=== PATIENT | male | born 1945 | race Native Hawaiian/Other Pacific Islander ===

== ENCOUNTER 2017-04-16 18:26 | Inpatient (IN) | payer MEDICARE ==
[~2017-04-16] VITALS: Ht 167.6 cm; Wt 75.1 kg
[~2017-04-16 18:26] MED LIST: ACCUMIS25; ACCUTES19; ASPI1TAB69 PO; ATOR40TA16 PO; GLIP5TAB8 PO; Lancets; MEDR4PAK PO; MELO-1 PO; METF1000 PO; ONETKIT; PROS5TAB PO; ROBA500T PO; TAMS0.4C4 PO; Test Strips; VIAG100T PO; [UNRECOGNIZED DRUG - SUPPLY]
[2017-04-16 18:29] VITALS: BP 129/58; PULSE 81; RESP 20; TEMP 98.8; O2SAT 94
--- NOTE | 2017-04-16 18:47 | PD ---
Physical Exam Date Seen by Provider: Apr 16, 2017 Time Seen by Provider: 18:46 Narrative 71 yo male here for low hemoglobin. Blood work done by PCP. Send here for eval. No chest pain or SOB. Denies any bleeding at this time. Vitals are stable in triage. Awaiting bed placement. Data Data Last Documented VS Vital Signs Date Time Temp Pulse Resp B/P (MAP) Pulse Ox O2 Delivery O2 Flow Rate FiO2 04/16/17 18:29 98.8 81 20 129/58 (81) 94 Room Air [facility] Medical Record Reviewed: Yes Supervised Visit with DRE: Ralph Watters Apr 16, 2017 18:47
[2017-04-16 19:25] VITALS: BP 129/57; PULSE 79; RESP 20; O2SAT 99
--- NOTE | 2017-04-16 19:36 | PD ---
HPI Chief Complaint: Abnormal Results Time Seen by Provider: 19:25 Travel History International Travel<30 days: No Contact w/Intl Traveler<30days: No Traveled to known affect area: No History of Present Illness HPI This is a 71-year-old male who presents for evaluation of abnormal lab work. He reports that last week he had outpatient lab tests performed and his primary care physician, Dr. Alvarez, called him today and told him his hemoglobin was in the low 6 range and told him to come to the emergency room. He does report over the past few weeks he has had increased weakness and dyspnea. He does also endorse black-looking stools on review of systems. He denies chest pain, nausea or vomiting, abdominal pain. He is on meloxicam and baby aspirin per chart review. He also has a history of colon cancer in remission. PFSH Past Medical History Arthritis: No Cancer: Yes (colon) Cardiovascular Problems: Yes Chemotherapy: No Cerebrovascular Accident: Yes Diabetes: Yes Patient Takes Glucophage: Yes Diminished Hearing: No Endocrine: No Gastrointestinal Disorders: Yes ( COLON CA) Genitourinary: No Hepatitis: No Hiatal Hernia: No Immune Disorder: No Musculoskeletal: Yes (BACK HNP) Neurologic: Yes (TIA HX) Psychiatric: No Reproductive: No Respiratory: No Migraines: No Radiation Therapy: No Seizures: No Thyroid Disease: No Past Surgical History Abdominal Surgery: Yes (ING HERNIA REP. LEFT) AICD: No Genitourinary Surgery: No Joint Replacement: No Pacemaker: No Other Surgery: Yes Social History Alcohol Use: No Tobacco Use: No Substance Use: No Allergies-Medications (Allergen,Severity, Reaction): Coded Allergies: No Known Allergies (Unverified , 04/12/17) Reported Meds & Prescriptions Reported Meds & Active Scripts Active Medrol Dosepak (Methylprednisolone) 4 Mg Dspk 4 Mg PO DIRECTED Per Pharmacist direction Glipizide 5 Mg Tab 5 Mg PO BIDAC Take 30 minutes before a meal Metformin (Metformin HCl) 1,000 Mg Tab 1,000 Mg PO BID With a meal Tamsulosin (Tamsulosin HCl) 0.4 Mg Cap 0.4 Mg PO HS Meloxicam 15 Mg Tab 15 Mg PO DAILY [Lancets] 1 Units .XX BID Onetouch Ultra Delica Lancets Atorvastatin (Atorvastatin Calcium) 40 Mg Tab 40 Mg PO HS Proscar (Finasteride) 5 Mg Tab 5 Mg PO DAILY Do not crush. [Test Strips] 1 Units .XX BID Onetouch Ultra Blue Test STrips [Accucheck Michelle] 1 U BID Glucometer - check blood sugars 2x daily Reported Aspirin 81 Mg Chew 81 Mg CHEW DAILY Accu-Chek Fastclix Lancet 1 Mis Mis 1 Ea .ROUTE DIRECTED Accu-Chek Strips Michelle Plus (Blood Glucose Test Strips) 1 Nano Nano 1 Strips .ROUTE BID Viagra (Sildenafil Citrate) 100 Mg Tab 100 Mg PO DAILY PRN Onetouch Ultra Mini W/Device (Device) 1 Kit Kit 1 Kit .ROUTE DIRECTED Review of Systems Except as stated in HPI: all other systems reviewed are Neg Physical Exam Narrative GENERAL: This is a well-developed well-nourished male who is in no acute distress. SKIN: Warm and dry. HEAD: Atraumatic. Normocephalic. EYES: Pupils equal and round. No scleral icterus. No injection or drainage. ENT: No nasal bleeding or discharge. Mucous membranes pink and moist. NECK: Trachea midline. No JVD. CARDIOVASCULAR: Regular rate and rhythm. Systolic murmur noted. RESPIRATORY: No accessory muscle use. Clear to auscultation. Breath sounds equal bilaterally. GASTROINTESTINAL: Abdomen soft, non-tender, nondistended. Hepatic and splenic margins not palpable. Rectal examination reveals brown stool which is heme positive. MUSCULOSKELETAL: No obvious deformities. No clubbing. No cyanosis. No edema. NEUROLOGICAL: Awake and alert. No obvious cranial nerve deficits. Motor grossly within normal limits. Normal speech. PSYCHIATRIC: Appropriate mood and affect; insight and judgment normal. Data Data Last Documented VS Vital Signs Date Time Temp Pulse Resp B/P (MAP) Pulse Ox O2 Delivery O2 Flow Rate FiO2 04/16/17 20:13 99 Room Air 04/16/17 19:25 79 20 04/16/17 18:29 98.8 Orders Orders Type And Screen (04/16/17 19:33) Complete Blood Count With Diff (04/16/17 19:33) Comprehensive Metabolic Panel (04/16/17 19:33) Act Partial Throm Time (Ptt) (04/16/17 19:33) Prothrombin Time / Inr (Pt) (04/16/17 19:33) Iv Access Insert/Monitor (04/16/17 19:33) Ecg Monitoring (04/16/17 19:33) Oximetry (04/16/17 19:33) Red Blood Cells (Rbc) (04/16/17 20:39) Blood Product Administration (04/16/17 20:39) Sodium Chlor 0.9% 250 Ml Inj (Ns 250 Ml (04/16/17 20:45) Pantoprazole Inj (Protonix Inj) (04/16/17 20:45) Admit Order (Ed Use Only) (04/16/17 21:18) Admit To Inpatient (04/16/17 ) Vital Signs (Adult) OMAIRA.Q4H (04/16/17 21:20) Activity Bed Rest (04/16/17 21:20) Low Altitude Air Defense Officer / Telemetry OMAIRA.Q8H (04/16/17 21:20) Diet Npo (04/17/17 Breakfast) Resp Oxygen Darrius C Titrat 1-4 L (04/16/17 ) Sodium Chloride 0.9% Flush (Ns Flush) (04/16/17 21:30) Sodium Chloride 0.9% Flush (Ns Flush) (04/17/17 09:00) Npo After Midnight W/ Po Meds (04/17/17 Breakfast) Inpatient Certification (04/16/17 ) Labs Laboratory Tests Test 04/16/17 19:45 White Blood Count 6.4 TH/MM3 Red Blood Count 3.81 MIL/MM3 Hemoglobin 7.0 GM/DL Hematocrit 23.5 % Mean Corpuscular Volume 61.8 FL Mean Corpuscular Hemoglobin 18.4 PG Mean Corpuscular Hemoglobin Concent 29.8 % Red Cell Distribution Width 19.4 % Platelet Count 426 TH/MM3 Mean Platelet Volume 8.6 FL Neutrophils (%) (Auto) 55.1 % Lymphocytes (%) (Auto) 32.0 % Monocytes (%) (Auto) 10.7 % Eosinophils (%) (Auto) 0.9 % Basophils (%) (Auto) 1.3 % Neutrophils # (Auto) 3.5 TH/MM3 Lymphocytes # (Auto) 2.0 TH/MM3 Monocytes # (Auto) 0.7 TH/MM3 Eosinophils # (Auto) 0.1 TH/MM3 Basophils # (Auto) 0.1 TH/MM3 CBC Comment DIFF FINAL Differential Comment Prothrombin Time 10.6 SEC Prothromb Time International Ratio 1.0 RATIO Activated Partial Thromboplast Time 24.5 SEC Blood Urea Nitrogen 18 MG/DL Creatinine 1.12 MG/DL Random Glucose 114 MG/DL Total Protein 6.9 GM/DL Albumin 3.9 GM/DL Calcium Level 9.3 MG/DL Alkaline Phosphatase 55 U/L Aspartate Amino Transf (AST/SGOT) 20 U/L Alanine Aminotransferase (ALT/SGPT) 36 U/L Total Bilirubin 0.4 MG/DL Sodium Level 137 MEQ/L Potassium Level 3.8 MEQ/L Chloride Level 103 MEQ/L Carbon Dioxide Level 25.0 MEQ/L Anion Gap 9 MEQ/L Estimat Glomerular Filtration Rate 65 ML/MIN MDM Medical Decision Making Medical Screen Exam Complete: Yes Emergency Medical Condition: Yes Medical Record Reviewed: Yes Differential Diagnosis Anemia, GI bleed, lab error Narrative Course CBC, coags, CMP, type and screen have been sent. The patient's hemoglobin is 7, he is symptomatic, therefore 2 units packed red blood cells have been ordered. 40 mg IV Protonix have been ordered. He is Hemoccult positive with brown stool. The patient will be admitted for further evaluation and treatment of symptomatic anemia, GI bleed. Hemodynamically stable. Diagnosis Primary Impression: Symptomatic anemia Additional Impression: GI bleed Qualified Codes: K92.2 - Gastrointestinal hemorrhage, unspecified Admitting Information Admitting Physician Requests: Admit Sina Murphy Apr 16, 2017 19:36
[2017-04-16] MEDS ORDERED: ASPI81CH CHEW (19:37)
[2017-04-16 20:13] VITALS: O2SAT 99
[2017-04-16 20:15] LABS: AUTOMATED NEUTROPHIL # 3.5 TH/MM3 (1.8-7.7); BASOPHIL # 0.1 TH/MM3 (0-0.2); BASOPHIL % 1.3 % (0.0-2.0); EOSINOPHIL # 0.1 TH/MM3 (0-0.4); EOSINOPHIL % 0.9 % (0.0-4.0); HEMATOCRIT 23.5 % (39.0-51.0); HEMO FLAGS DIFF FINAL; MEAN CELL VOLUME 61.8 FL (80.0-100.0); MEAN CORPUSCULAR HEMOGLOBIN 18.4 PG (27.0-34.0); MONO % 10.7 % (0.0-8.0); NEUT % 55.1 % (16.0-70.0); PLATELET COUNT 426 TH/MM3 (150-450); RED BLOOD COUNT 3.81 MIL/MM3 (4.50-5.90); RED CELL DISTRIBUTION WIDTH 19.4 % (11.6-17.2); WHITE BLOOD COUNT 6.4 TH/MM3 (4.0-11.0)
[2017-04-16 20:20] LABS: APTT (PATIENT) 24.5 SEC (24.3-30.1); PROTHROMBIN TIME - PATIENT 10.6 SEC (9.8-11.6)
[2017-04-16 20:28] LABS: MEAN CORPUSCULAR HGB CONC 29.8 % (32.0-36.0)
[2017-04-16 20:38] LABS: ANION GAP 9 MEQ/L (5-15); AST (GOT) 20 U/L (15-37); BLOOD UREA NITROGEN 18 MG/DL (7-18); CHLORIDE 103 MEQ/L (98-107); GLOMERULAR FILTRATION RATE 65 ML/MIN (>89); POTASSIUM 3.8 MEQ/L (3.5-5.1); SODIUM (NA) 137 MEQ/L (136-145)
[2017-04-16 20:39] LABS: ALT (GPT) 36 U/L (12-78)
[2017-04-16 20:41] LABS: ALKALINE PHOSPHATASE 55 U/L (45-117); TOTAL BILIRUBIN ADULT 0.4 MG/DL (0.2-1.0)
[2017-04-16] MEDS ORDERED: PANTOPRAZOLE SODIUM 40 MG VIAL IV PUSH ONE (20:45)
[2017-04-16] MEDS ORDERED: SODIUM CHLOR 0.9% 250 ML INJ 250 ML IV ONE (20:45)
--- NOTE | 2017-04-16 21:20 | HHI.HP ---
HPI Service Family Medicine Primary Care Physician Filiberto Alvarez MD Admission Diagnosis symptomatic anemia, GI bleed Diagnoses: International Travel<30 Days: No Contact w/Intl Traveler<30days: No Known Affected Area: No History of Present Illness Patient is a 71-year-old male with a past medical history of diabetes, hyperlipidemia, colon cancer status post left hemicolectomy, hypertension, BPH, and left knee pain that presented to the [place] ED after being sent here by Dr. Banegas who saw him in the [facility] clinic on April 12. At that time, patient complained of shortness of breath with exertion, fatigue and dizziness. Patient also reported having pressure-like sensation in his chest of one week duration. A CBC was ordered at that clinic visit which showed a hemoglobin of 6.2 and hematocrit of 22. Patient was called and asked to present to the ED for blood transfusion. Patient would need to be evaluated due to his history of colon cancer for which he had a left hemicolectomy on November 11, 2013. Review of Systems Constitutional: COMPLAINS OF: Fatigue, DENIES: Fever, Chills Eyes: DENIES: Blurred vision, Vision loss Ears, nose, mouth, throat: DENIES: Nasal discharge, Running Nose Respiratory: COMPLAINS OF: Shortness of breath Cardiovascular: COMPLAINS OF: Chest pain (pressure) Gastrointestinal: COMPLAINS OF: Black stools, DENIES: Abdominal pain Genitourinary: DENIES: Urinary frequency, Dysuria Musculoskeletal: COMPLAINS OF: Muscle aches (lower leg cramping ), DENIES: Joint pain Integumentary: DENIES: Pruritus, Rash Neurologic: DENIES: Headache Past Family Social History Past Medical History Diabetes Mellitus type II BPH Low back pain with h/o herniated disk Colon Cancer status post hemicolectomy 2013 Past Surgical History Left inguinal hernia repair 1984 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 [Test Strips] 1 Units .XX BID Onetouch Ultra Blue Test STrips [Accucheck Michelle] 1 U BID Glucometer - check blood sugars 2x daily Reported Aspirin 81 Mg Chew 81 Mg CHEW DAILY Accu-Chek Fastclix Lancet 1 Mis Mis 1 Ea .ROUTE DIRECTED Accu-Chek Strips Michelle Plus (Blood Glucose Test Strips) 1 Nano Nano 1 Strips .ROUTE BID Viagra (Sildenafil Citrate) 100 Mg Tab 100 Mg PO DAILY PRN Onetouch Ultra Mini W/Device (Device) 1 Kit Kit 1 Kit .ROUTE DIRECTED Allergies: Coded Allergies: No Known Allergies (Unverified , 04/12/17) Family History Father: age 85 - heart failure Mother: age 70 - heart failure Siblings: Brother age 80 heart failure, sister age 60 ovarian cancer Brother age 77, diabetic Sister age 68 - healthy Children: Son/daughter - both healthy Social History Marrital Status: Living Situation: Alone in apartment Education: college graduate 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 SKIN: No rashes, ecchymoses or lesions. Cool and dry, pale appearing HEAD: Atraumatic. Normocephalic. No temporal or scalp tenderness. EYES: Pupils equal round and reactive. Extraocular motions intact. No scleral icterus. No injection or drainage. ENT: Nose without bleeding, purulent drainage or septal hematoma. Throat without erythema, tonsillar hypertrophy or exudate. Uvula midline. Airway patent. NECK: Trachea midline. No JVD or lymphadenopathy. Supple, nontender, no meningeal signs. CARDIOVASCULAR: Regular rate and rhythm. Grade 3/6 holosystolic ejection murmur that radiates to the carotids RESPIRATORY: Clear to auscultation. Breath sounds equal bilaterally. No wheezes , rales, or rhonchi. GASTROINTESTINAL: Abdomen soft, non-tender, nondistended. No hepato-splenomegaly , or palpable masses. No guarding. MUSCULOSKELETAL: Extremities without clubbing, cyanosis, or edema. No joint tenderness, effusion, or edema noted. No calf tenderness. NEUROLOGICAL: Awake and alert, very pleasant. Cranial nerves II through XII intact. Motor and sensory grossly within normal limits. Five out of 5 muscle strength in all muscle groups. Normal speech. Laboratory Laboratory Tests Test 04/16/17 19:45 White Blood Count 6.4 Red Blood Count 3.81 Hemoglobin 7.0 Hematocrit 23.5 Mean Corpuscular Volume 61.8 Mean Corpuscular Hemoglobin 18.4 Mean Corpuscular Hemoglobin Concent 29.8 Red Cell Distribution Width 19.4 Platelet Count 426 Mean Platelet Volume 8.6 Neutrophils (%) (Auto) 55.1 Lymphocytes (%) (Auto) 32.0 Monocytes (%) (Auto) 10.7 Eosinophils (%) (Auto) 0.9 Basophils (%) (Auto) 1.3 Neutrophils # (Auto) 3.5 Lymphocytes # (Auto) 2.0 Monocytes # (Auto) 0.7 Eosinophils # (Auto) 0.1 Basophils # (Auto) 0.1 CBC Comment DIFF FINAL Differential Comment Prothrombin Time 10.6 Prothromb Time International Ratio 1.0 Activated Partial Thromboplast Time 24.5 Blood Urea Nitrogen 18 Creatinine 1.12 Random Glucose 114 Total Protein 6.9 Albumin 3.9 Calcium Level 9.3 Alkaline Phosphatase 55 Aspartate Amino Transf (AST/SGOT) 20 Alanine Aminotransferase (ALT/SGPT) 36 Total Bilirubin 0.4 Sodium Level 137 Potassium Level 3.8 Chloride Level 103 Carbon Dioxide Level 25.0 Anion Gap 9 Estimat Glomerular Filtration Rate 65 Result Diagram: 04/16/17194404/16/171944 Caprini VTE Risk Assessment Caprini VTE Risk Assessment: No/Low Risk (score <= 1) VTE Pharm Contraindication: Active bleeding Caprini Risk Assessment Model Point Value = 1 Point Value = 2 Point Value = 3 Point Value = 5 Age 41-60 Minor surgery BMI > 25 kg/m2 Swollen legs Varicose veins or History of unexplained or recurrent spontaneous Oral contraceptives or hormone replacement Sepsis (< 1 month) Serious lung disease, including pneumonia (< 1 month) Abnormal pulmonary function Acute myocardial infarction Congestive heart failure (< 1 month) History of inflammatory bowel disease Medical patient at bed rest Age 61-74 Arthroscopic surgery Major open surgery (> 45 min) Laparoscopic surgery (> 45 min) Malignancy Confined to bed (> 72 hours) Immobilizing plaster cast Central venous access Age >= 75 History of VTE Family history of VTE Factor V Leiden Prothrombin [id number] Lupus anticoagulant Anticardiolipin antibodies Elevated serum homocysteine Heparin-induced thrombocytopenia Other congenital or acquired thrombophilia Stroke (< 1 month) Elective arthroplasty Hip, pelvis, or leg fracture Acute spinal cord injury (< 1 month) Prophylaxis Regimen Total Risk Factor Score Risk Level Prophylaxis Regimen 0-1 Low Early ambulation 2 Moderate Order ONE of the following: *Sequential Compression Device (SCD) *Heparin 5000 units SQ BID 3-4 Higher Order ONE of the following medications: *Heparin 5000 units SQ TID *Enoxaparin/Lovenox 40 mg SQ daily (WT < 150 kg, CrCl > 30 mL/min) *Enoxaparin/Lovenox 30 mg SQ daily (WT < 150 kg, CrCl > 10-29 mL/min) *Enoxaparin/Lovenox 30 mg SQ BID (WT < 150 kg, CrCl > 30 mL/min) AND/OR *Sequential Compression Device (SCD) 5 or more Highest Order ONE of the following medications: *Heparin 5000 units SQ TID (Preferred with Epidurals) *Enoxaparin/Lovenox 40 mg SQ daily (WT < 150 kg, CrCl > 30 mL/min) *Enoxaparin/Lovenox 30 mg SQ daily (WT < 150 kg, CrCl > 10-29 mL/min) *Enoxaparin/Lovenox 30 mg SQ BID (WT < 150 kg, CrCl > 30 mL/min) AND *Sequential Compression Device (SCD) Assessment and Plan Assessment and Plan 71 y/o M with PMH of diabetes, hypertension, and colon cancer status post left hemicolectomy in 2013 presents with symptomatic anemia, Hemoccult positive. Patient will be admitted for blood transfusion and evaluation by gastroenterology due to concern for recurrence of colon cancer. Code Status Full code Discussed Condition With Seen and discussed with Dr. Coelho, PGY-1. Will discuss with Dr. Cramer. Problem List: (1) Symptomatic anemia ICD Codes: D64.9 - Anemia, unspecified Status: Acute Plan: -CBC in office 6.2, 7.0 in the ED -Pt reports intermittent pressure-like chest pain, fatigue, and shortness of breath of at least 2 weeks duration -Has not been eating well of late -Will transfuse 2 units PRBC -Repeat CBC in the am after transfusion (2) GI bleed ICD Codes: K92.2 - Gastrointestinal hemorrhage, unspecified Status: Chronic Plan: -Hemoccult positive in the ED in the setting of colon cancer s/p hemicolectomy in 2013 -Suspect chronic GI bleed, will have to rule out colon cancer recurrence -GI consulted to evaluate for colonoscopy/EGD -NPO at midnight for possible procedure in the morning -Holding Aspirin and Meloxicam (3) Diabetes mellitus type 2 in nonobese ICD Codes: E11.9 - Type 2 diabetes mellitus without complications Status: Chronic Plan: -Holding home metformin and glipizide -Low dose sliding scale insulin with accuchecks (4) Valvular heart disease ICD Codes: I38 - Endocarditis, valve unspecified Status: Chronic Plan: -ECHO from 11/2016 performed as outpatient shows EF of 62% with moderate aortic stenosis, mild MR, mild-moderate TR, and mild pulmonary hypertension -Pt had recent visit with his office machines sales representative Dr. Moran on 04/15/17 who scheduled him for a heart cath next week -Holding aspirin due to GI bleed (5) Hypertension ICD Codes: I10 - Hypertension Status: Acute Plan: -Currently normotensive -Not on any antihypertensives at home -Vasotec prn for SBP>170 or DBP > 100 or HR >65 (6) Hyperlipidemia ICD Codes: E78.5 - Hyperlipidemia Status: Acute Plan: Holding atorvastatin due to complaints of leg cramps (7) BPH (benign prostatic hyperplasia) ICD Codes: N40.0 - Benign prostatic hyperplasia without lower urinary tract symptoms Plan: -Continue home Tamsulosin 0.4 mg PO HS and Finasteride 5mg PO daily (8) FEN/DVT PPX/GI PPX/Nursing Orders Plan: Fluids: currently receiving 2 units PRBC, primary team may choose to start fluids in the am Electrolytes: Will monitor and replace as needed Nutrition: NPO at midnight for procedure, otherwise heart healthy diet DVT Prophylaxis: Bilateral SCDs, Holding pharmacological prophylaxis due to GI bleed GI Prophylaxis: Protonix 40mg IV daily Constipation prophylaxis: Pericolace 1 tab PO BID PRN PRN Medications Tylenol 325 mg by mouth every 4 hours when necessary pain 1-10 or temperature greater than 100.4F Zofran 4 mg IV push every 6 hours when necessary nausea vomiting Vasotec 1.25 mg IV PRN SBP greater than 170 or DBP greater than 100 -Vitals Q4h -Monitor I's and O's -Fall precautions -security monitor with telemetry with continuous vital signs -Activity bed rest -Case management consult to assist with discharge disposition Disposition: Possibly in the next 2-3 days pending GI consult Physician Certification 2 Midnight Certification Type: Admission for Inpatient Services Order for Inpatient Services The services are ordered in accordance with Medicare regulations or non- Medicare payer requirements, as applicable. In the case of services not specified as inpatient-only, they are appropriately provided as inpatient services in accordance with the 2-midnight benchmark. Estimated LOS (days): 2 days is the estimated time the patient will need to remain in the hospital, assuming treatment plan goals are met and no additional complications. Post-Hospital Plan: Home Problem Qualifiers (1) GI bleed: Qualified Codes: K92.2 - Gastrointestinal hemorrhage, unspecified Lucie Banegas MD R2 Apr 16, 2017 21:19
[2017-04-16] MEDS ORDERED: SODIUM CHLORIDE 0.9% FLUSH 10 ML FLUSH IV FLUSH PRN (21:30)
[2017-04-16 21:56] VITALS: O2SAT 99
[2017-04-16 22:00] VITALS: PULSE 69
[2017-04-16 22:40] VITALS: BP 117/77; PULSE 71; RESP 18; TEMP 98.8; O2SAT 98
[2017-04-16] MEDS: TAMSULOSIN HCL 0.4 MG CAP PO SCH (22:46)
[2017-04-16] MEDS: FINASTERIDE 5 MG TAB PO SCH (22:46)
[2017-04-16] MEDS ORDERED: ONDANSETRON HCL 4 MG/2 ML VIAL IV PUSH PRN (23:15)
[2017-04-16] MEDS ORDERED: DEXTROSE 50% IN WATER 50 ML VIAL(D50) IV PUSH PRN (23:15)
[2017-04-16] MEDS ORDERED: ACETAMINOPHEN 325 MG TAB PO PRN (23:15)
[2017-04-16] MEDS ORDERED: ENALAPRILAT 1.25 MG/ML VIAL IV PUSH PRN (23:15)
[2017-04-16] MEDS ORDERED: GLUCAGON 1 MG/ML VIAL OTHER PRN (23:15)
[2017-04-16] MEDS ORDERED: FUROSEMIDE 20 MG/2 ML VIAL IV PUSH PRN (23:30)
[2017-04-16] MEDS ORDERED: diphenhydrAMINE HCL 25 MG CAP PO PRN (23:30)
[2017-04-16] MEDS ORDERED: DOCUSATE SODIUM 50 MG/SENNA 8.6 MG TAB PO PRN (23:45)
[2017-04-17] VITALS (10 sets, daily range): BP systolic 109–144; BP diastolic 54–72; PULSE 60–97; RESP 16–21; TEMP 97.6–98.8; O2SAT 96–100
[2017-04-17 06:29] LABS: MEAN CELL VOLUME 66.2 FL (80.0-100.0); MEAN CORPUSCULAR HEMOGLOBIN 20.6 PG (27.0-34.0); MEAN CORPUSCULAR HGB CONC 31.1 % (32.0-36.0); PLATELET COUNT 353 TH/MM3 (150-450); RED BLOOD COUNT 4.07 MIL/MM3 (4.50-5.90); RED CELL DISTRIBUTION WIDTH 22.5 % (11.6-17.2); REVIEW FLAG FINAL; WHITE BLOOD COUNT 5.7 TH/MM3 (4.0-11.0)
[2017-04-17 07:12] LABS: BICARBONATE 25.5 MEQ/L (21.0-32.0); POTASSIUM 3.9 MEQ/L (3.5-5.1)
[2017-04-17] MEDS: INSULIN ASPART SUPPLEMENTAL SCALE SQ SCH ×4 (08:00→20:35)
[2017-04-17] MEDS: PANTOPRAZOLE SODIUM 40 MG VIAL IV PUSH SCH (08:37)
[2017-04-17] MEDS: SODIUM CHLORIDE 0.9% FLUSH 10 ML FLUSH IV FLUSH SCH ×2 (09:00→20:35)
[2017-04-17] MEDS ORDERED: FINASTERIDE 5 MG TAB PO SCH (09:00)
--- NOTE | 2017-04-17 09:42 | HHI.HP ---
[facility] Service Family Medicine Primary Care Physician Filiberto Alvarez MD Admission Diagnosis symptomatic anemia, GI bleed Diagnoses: (1) Symptomatic anemia Diagnosis: Principal (2) GI bleed Diagnosis: Principal (3) Diabetes mellitus type 2 in nonobese Diagnosis: Principal (4) Valvular heart disease Diagnosis: Principal (5) Hypertension Diagnosis: Principal (6) Hyperlipidemia Diagnosis: Principal (7) BPH (benign prostatic hyperplasia) Diagnosis: Principal (8) FEN/DVT PPX/GI PPX/Nursing Orders Diagnosis: Principal International Travel<30 Days: No Contact w/Intl Traveler<30days: No Known Affected Area: No History of Present Illness Mr Stacy is a 71-year-old male with a past medical history of diabetes, hyperlipidemia, colon cancer status post left hemicolectomy, hypertension, BPH, and left knee pain that presented to the [place] ED after being sent here by Dr. Banegas who saw him in the [facility] clinic on April 12. At that time, patient complained of shortness of breath with exertion, fatigue and dizziness. Patient also reported having pressure-like sensation in his chest of one week duration. A CBC was ordered at that clinic visit which showed a hemoglobin of 6.2 and hematocrit of 22. Patient was called and asked to present to the ED for blood transfusion. Patient would need to be evaluated due to his history of colon cancer for which he had a left hemicolectomy on November 11, 2013. He denies any history of blood seen in his stools or dark tarry stools. he reported all his sxs of SOB, fatigue, etc started about a week prior to admission. Review of Systems Other Constitutional: COMPLAINS OF: Fatigue, DENIES: Fever, Chills Eyes: DENIES: Blurred vision, Vision loss Ears, nose, mouth, throat: DENIES: Nasal discharge, Running Nose Respiratory: COMPLAINS OF: Shortness of breath Cardiovascular: COMPLAINS OF: Chest pain (pressure) Gastrointestinal: COMPLAINS OF: Black stools, DENIES: Abdominal pain Genitourinary: DENIES: Urinary frequency, Dysuria Musculoskeletal: COMPLAINS OF: Muscle aches (lower leg cramping ), DENIES: Joint pain Integumentary: DENIES: Pruritus, Rash Neurologic: DENIES: Headache Past Family Social History Past Medical History Diabetes Mellitus type II BPH Low back pain with h/o herniated disk Colon Cancer status post hemicolectomy 2013 moderate aortic stenosis Past Surgical History Left inguinal hernia repair 1984 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 Allergies: Coded Allergies: No Known Allergies (Unverified , 04/12/17) Family History Father: age 85 - heart failure Mother: age 70 - heart failure Siblings: Brother age 80 heart failure, sister age 60 ovarian cancer Brother age 77, diabetic Sister age 68 - healthy Children: Son/daughter - both healthy Social History Marrital Status: Living Situation: Alone in apartment Education: college graduate 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 Tobacco: No - no h/o smoking Alcohol: none Illicit drug use: none Physical Exam Vital Signs Vital Signs Date Time Temp Pulse Resp B/P (MAP) Pulse Ox O2 Delivery O2 Flow Rate FiO2 04/17/17 08:00 97.9 74 18 131/63 (85) 99 04/17/17 05:18 98.2 62 16 119/59 97 04/17/17 04:00 98.1 61 19 110/54 (72) 96 04/17/17 02:07 98.0 70 18 109/55 97 04/17/17 00:00 98.8 76 21 123/72 (89) 100 04/16/17 22:40 98.8 71 18 117/77 (90) 98 04/16/17 22:05 04/16/17 22:00 Room Air 04/16/17 22:00 69 04/16/17 21:56 99 04/16/17 20:13 99 Room Air 04/16/17 19:25 79 20 129/57 (81) 99 Room Air 04/16/17 18:29 98.8 81 20 129/58 (81) 94 Room Air Physical Exam GENERAL: This is a well-nourished, well-developed patient, in no apparent distress. SKIN: No rashes, ecchymoses or lesions. Cool and dry, pale appearing on admission HEAD: Atraumatic. Normocephalic. EYES: Pupils equal round and reactive. Extraocular motions intact. No scleral icterus. No injection or drainage. ENT: Nose without bleeding, purulent drainage or septal hematoma. Throat without erythema, tonsillar hypertrophy or exudate. Uvula midline. Airway patent. NECK: Trachea midline. No JVD or lymphadenopathy. Supple, nontender, no meningeal signs. CARDIOVASCULAR: Regular rate and rhythm. Grade 3/6 holosystolic soft ejection murmur that radiates to the carotids RESPIRATORY: Clear to auscultation. Breath sounds equal bilaterally. No wheezes , rales, or rhonchi. GASTROINTESTINAL: Abdomen soft, non-tender, nondistended. No hepato-splenomegaly , or palpable masses. No guarding. MUSCULOSKELETAL: Extremities without clubbing, cyanosis, or edema. No joint tenderness, effusion, or edema noted. No calf tenderness. NEUROLOGICAL: Awake and alert, very pleasant. Cranial nerves II through XII intact. Motor and sensory grossly within normal limits. Five out of 5 muscle strength in all muscle groups. Normal speech. Laboratory Laboratory Tests Test 04/16/17 19:45 04/17/17 06:01 White Blood Count 6.4 5.7 Red Blood Count 3.81 4.07 Hemoglobin 7.0 8.4 Hematocrit 23.5 27.0 Mean Corpuscular Volume 61.8 66.2 Mean Corpuscular Hemoglobin 18.4 20.6 Mean Corpuscular Hemoglobin Concent 29.8 31.1 Red Cell Distribution Width 19.4 22.5 Platelet Count 426 353 Mean Platelet Volume 8.6 7.7 Neutrophils (%) (Auto) 55.1 Lymphocytes (%) (Auto) 32.0 Monocytes (%) (Auto) 10.7 Eosinophils (%) (Auto) 0.9 Basophils (%) (Auto) 1.3 Neutrophils # (Auto) 3.5 Lymphocytes # (Auto) 2.0 Monocytes # (Auto) 0.7 Eosinophils # (Auto) 0.1 Basophils # (Auto) 0.1 CBC Comment DIFF FINAL Differential Comment Prothrombin Time 10.6 Prothromb Time International Ratio 1.0 Activated Partial Thromboplast Time 24.5 Blood Urea Nitrogen 18 19 Creatinine 1.12 0.94 Random Glucose 114 100 Total Protein 6.9 Albumin 3.9 Calcium Level 9.3 8.5 Alkaline Phosphatase 55 Aspartate Amino Transf (AST/SGOT) 20 Alanine Aminotransferase (ALT/SGPT) 36 Total Bilirubin 0.4 Sodium Level 137 139 Potassium Level 3.8 3.9 Chloride Level 103 107 Carbon Dioxide Level 25.0 25.5 Anion Gap 9 7 Estimat Glomerular Filtration Rate 65 80 Result Diagram: 10/11/17 0601 10/11/17 0601 Caprini VTE Risk Assessment Caprini VTE Risk Assessment: No/Low Risk (score <= 1) VTE Pharm Contraindication: Active bleeding Caprini Risk Assessment Model Point Value = 1 Point Value = 2 Point Value = 3 Point Value = 5 Age 41-60 Minor surgery BMI > 25 kg/m2 Swollen legs Varicose veins or History of unexplained or recurrent spontaneous Oral contraceptives or hormone replacement Sepsis (< 1 month) Serious lung disease, including pneumonia (< 1 month) Abnormal pulmonary function Acute myocardial infarction Congestive heart failure (< 1 month) History of inflammatory bowel disease Medical patient at bed rest Age 61-74 Arthroscopic surgery Major open surgery (> 45 min) Laparoscopic surgery (> 45 min) Malignancy Confined to bed (> 72 hours) Immobilizing plaster cast Central venous access Age >= 75 History of VTE Family history of VTE Factor V Leiden Prothrombin [id number] Lupus anticoagulant Anticardiolipin antibodies Elevated serum homocysteine Heparin-induced thrombocytopenia Other congenital or acquired thrombophilia Stroke (< 1 month) Elective arthroplasty Hip, pelvis, or leg fracture Acute spinal cord injury (< 1 month) Prophylaxis Regimen Total Risk Factor Score Risk Level Prophylaxis Regimen 0-1 Low Early ambulation 2 Moderate Order ONE of the following: *Sequential Compression Device (SCD) *Heparin 5000 units SQ BID 3-4 Higher Order ONE of the following medications: *Heparin 5000 units SQ TID *Enoxaparin/Lovenox 40 mg SQ daily (WT < 150 kg, CrCl > 30 mL/min) *Enoxaparin/Lovenox 30 mg SQ daily (WT < 150 kg, CrCl > 10-29 mL/min) *Enoxaparin/Lovenox 30 mg SQ BID (WT < 150 kg, CrCl > 30 mL/min) AND/OR *Sequential Compression Device (SCD) 5 or more Highest Order ONE of the following medications: *Heparin 5000 units SQ TID (Preferred with Epidurals) *Enoxaparin/Lovenox 40 mg SQ daily (WT < 150 kg, CrCl > 30 mL/min) *Enoxaparin/Lovenox 30 mg SQ daily (WT < 150 kg, CrCl > 10-29 mL/min) *Enoxaparin/Lovenox 30 mg SQ BID (WT < 150 kg, CrCl > 30 mL/min) AND *Sequential Compression Device (SCD) Assessment and Plan Assessment and Plan 71 y/o M with PMH of diabetes, hypertension, and colon cancer status post left hemicolectomy in 2013 presents with symptomatic anemia, Hemoccult positive. Patient will be admitted for blood transfusion and evaluation by gastroenterology due to concern for recurrence of colon cancer. Problem List: (1) Symptomatic anemia ICD Codes: D64.9 - Anemia, unspecified Status: Acute Plan: -CBC in office 6.2, 7.0 in the ED -Pt reports intermittent pressure-like chest pain, fatigue, and shortness of breath of at least 2 weeks duration -Has not been eating well of late -Will transfuse 2 units PRBC -Repeat CBC in the am after transfusion (2) GI bleed ICD Codes: K92.2 - Gastrointestinal hemorrhage, unspecified Status: Chronic Plan: -Hemoccult positive in the ED in the setting of colon cancer s/p hemicolectomy in 2013 -Suspect chronic GI bleed, will have to rule out colon cancer recurrence -GI consulted to evaluate for colonoscopy/EGD -NPO at midnight for possible procedure in the morning -Holding Aspirin and Meloxicam (3) Diabetes mellitus type 2 in nonobese ICD Codes: E11.9 - Type 2 diabetes mellitus without complications Status: Chronic Plan: -Holding home metformin and glipizide -Low dose sliding scale insulin with accuchecks (4) Valvular heart disease ICD Codes: I38 - Endocarditis, valve unspecified Status: Chronic Plan: -ECHO from 11/2016 performed as outpatient shows EF of 62% with moderate aortic stenosis, mild MR, mild-moderate TR, and mild pulmonary hypertension -Pt had recent visit with 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 Moran on 04/15/17 who scheduled him for a heart cath next week -Holding aspirin due to GI bleed (5) Hypertension ICD Codes: I10 - Hypertension Status: Acute Plan: -Currently normotensive -Not on any antihypertensives at home -Vasotec prn for SBP>170 or DBP > 100 or HR >65 (6) Hyperlipidemia ICD Codes: E78.5 - Hyperlipidemia Status: Acute Plan: Holding atorvastatin due to complaints of leg cramps (7) BPH (benign prostatic hyperplasia) ICD Codes: N40.0 - Benign prostatic hyperplasia without lower urinary tract symptoms Plan: -Continue home Tamsulosin 0.4 mg PO HS and Finasteride 5mg PO daily (8) FEN/DVT PPX/GI PPX/Nursing Orders Plan: Fluids: received 2 units PRBC Electrolytes: Will monitor and replace as needed Nutrition: NPO at midnight for possible procedure, otherwise heart healthy diet DVT Prophylaxis: Bilateral SCDs, Holding pharmacological prophylaxis due to GI bleed GI Prophylaxis: Protonix 40mg IV daily Constipation prophylaxis: Pericolace 1 tab PO BID PRN PRN Medications Tylenol 325 mg by mouth every 4 hours when necessary pain 1-10 or temperature greater than 100.4F Zofran 4 mg IV push every 6 hours when necessary nausea vomiting Vasotec 1.25 mg IV PRN SBP greater than 170 or DBP greater than 100 -Vitals Q4h -Monitor I's and O's -Fall precautions -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
--- NOTE | 2017-04-17 11:29 | PD.CONS ---
HPI History of Present Illness This is a 71 year old male patient with a history of colon cancer who was referred to the emergency room for evaluation of severe anemia found on outpatient lab work. He reports that for the past week or so, he has been slightly more fatigued than usual. However, he is still able to go to the gym and workup for an hour on the treadmill. During this time, his appetite has been decreased and he has lost about 5 lbs (unintentionally). His family members have noted that he has generalized pallor, but he has not seen any obvious blood loss. He specifically denies any nausea, vomiting, heartburn, reflux, abdominal pain, bowel changes, diarrhea, constipation, melena, or hematochezia. He denies any history of peptic ulcer disease. He was diagnosed with Stage IIA Colon Cancer in 2013. He was treated with a hemicolectomy, but did not require any radiation or chemotherapy. His last colonoscopy was in [address] Thorne. He believes that he had polyps removed. He also has a history aortic stenosis and is scheduled for a cardiac catheterization with Dr. Moran on April 23, 2017. (Radha Leahy) PFSH Past Medical History Moderate aortic stenosis Stage IIA Colon Cancer, s/p hemicolectomy- did not require chemotherapy/ radiation DM BPH Chronic low back pain DDD Past Surgical History Hemicolectomy Colonosocpy Left inguinal hernia repair (Radha Leahy) Coded Allergies: No Known Allergies (Unverified , 04/12/17) Medications Allergies Coded Allergies Type Severity Reaction Last Updated Verified No Known Allergies 04/12/17 No Active Scripts Medications Dose Route/Sig Max Daily Dose Days Date Category Dose Instructions Aspirin 81 Mg Chew 81 Mg CHEW DAILY 04/16/17 Reported Medrol Dosepak (Methylprednisolone) 4 Mg Dspk 4 Mg PO DIRECTED 01/09/17 Rx Per Pharmacist direction Glipizide 5 Mg Tab 5 Mg PO BIDAC 12/14/16 Rx Take 30 minutes before a meal Metformin (Metformin HCl) 1,000 Mg Tab 1,000 Mg PO BID 12/14/16 Rx With a meal Tamsulosin (Tamsulosin HCl) 0.4 Mg Cap 0.4 Mg PO HS 12/14/16 Rx Meloxicam 15 Mg Tab 15 Mg PO DAILY 12/13/16 Rx [Lancets] 1 Units .XX BID 12/13/16 Rx Onetouch Ultra Delica Lancets Atorvastatin (Atorvastatin Calcium) 40 Mg Tab 40 Mg PO HS 12/13/16 Rx Proscar (Finasteride) 5 Mg Tab 5 Mg PO DAILY 12/13/16 Rx Do not crush. [Test Strips] 1 Units .XX BID 09/24/16 Rx Onetouch Ultra Blue Test STrips Accu-Chek Fastclix Lancet 1 Mis Mis 1 Ea .ROUTE DIRECTED 05/08/16 Reported Accu-Chek Strips Michelle Plus (Blood Glucose Test Strips) 1 Nano Nano 1 Strips .ROUTE BID 05/08/16 Reported Viagra (Sildenafil Citrate) 100 Mg Tab 100 Mg PO DAILY PRN 05/08/16 Reported Onetouch Ultra Mini W/Device (Device) 1 Kit Kit 1 Kit .ROUTE DIRECTED 05/08/16 Reported [Accucheck Michelle] 1 U BID 01/25/15 Rx Glucometer - check blood sugars 2x daily Family History Mother and father both from heart failure Brother from heart failure Sister from ovarian cancer Brother with DM Social History No tobacco history No ETOH use or illicit drug use. (Radha Leahy) Review of Systems Constitutional: COMPLAINS OF: Fatigue, Weight loss Respiratory: DENIES: Cough Cardiovascular: DENIES: Chest pain Gastrointestinal: COMPLAINS OF: Anorexia, DENIES: Abdominal pain, Black stools , Bloody stools, Constipation, Diarrhea, Nausea, Vomiting, Swelling of Abdomen, Heartburn Musculoskeletal: DENIES: Joint pain Integumentary: DENIES: Abnormal pigmentation Hematologic/lymphatic: DENIES: Bruising Neurologic: DENIES: Headache Psychiatric: DENIES: Confusion (Radha Leahy) GI Exam Vitals I&O Vital Signs Date Time Temp Pulse Resp B/P (MAP) Pulse Ox O2 Delivery O2 Flow Rate FiO2 04/17/17 09:50 99 04/17/17 08:00 97.9 74 18 131/63 (85) 99 04/17/17 05:18 98.2 62 16 119/59 97 04/17/17 04:00 98.1 61 19 110/54 (72) 96 04/17/17 02:07 98.0 70 18 109/55 97 04/17/17 00:00 98.8 76 21 123/72 (89) 100 04/16/17 22:40 98.8 71 18 117/77 (90) 98 04/16/17 22:05 04/16/17 22:00 Room Air 04/16/17 22:00 69 04/16/17 21:56 99 04/16/17 20:13 99 Room Air 04/16/17 19:25 79 20 129/57 (81) 99 Room Air 04/16/17 18:29 98.8 81 20 129/58 (81) 94 Room Air I/O 04/16/17 04/16/17 04/16/17 04/17/17 04/17/17 04/17/17 06:59 14:59 22:59 06:59 14:59 22:59 Intake Total 800 ml Output Total 450 ml Balance 350 ml Intake Oral 0 ml Packed Cells 800 ml Output Urine Total 450 ml # Bowel Movements 0 Laboratory Test 04/16/17 19:45 04/17/17 06:01 White Blood Count 6.4 TH/MM3 5.7 TH/MM3 Red Blood Count 3.81 MIL/MM3 4.07 MIL/MM3 Hemoglobin 7.0 GM/DL 8.4 GM/DL Hematocrit 23.5 % 27.0 % Mean Corpuscular Volume 61.8 FL 66.2 FL Mean Corpuscular Hemoglobin 18.4 PG 20.6 PG Mean Corpuscular Hemoglobin Concent 29.8 % 31.1 % Red Cell Distribution Width 19.4 % 22.5 % Platelet Count 426 TH/MM3 353 TH/MM3 Mean Platelet Volume 8.6 FL 7.7 FL Neutrophils (%) (Auto) 55.1 % Lymphocytes (%) (Auto) 32.0 % Monocytes (%) (Auto) 10.7 % Eosinophils (%) (Auto) 0.9 % Basophils (%) (Auto) 1.3 % Neutrophils # (Auto) 3.5 TH/MM3 Lymphocytes # (Auto) 2.0 TH/MM3 Monocytes # (Auto) 0.7 TH/MM3 Eosinophils # (Auto) 0.1 TH/MM3 Basophils # (Auto) 0.1 TH/MM3 CBC Comment DIFF FINAL Differential Comment Prothrombin Time 10.6 SEC Prothromb Time International Ratio 1.0 RATIO Activated Partial Thromboplast Time 24.5 SEC Blood Urea Nitrogen 18 MG/DL 19 MG/DL Creatinine 1.12 MG/DL 0.94 MG/DL Random Glucose 114 MG/DL 100 MG/DL Total Protein 6.9 GM/DL Albumin 3.9 GM/DL Calcium Level 9.3 MG/DL 8.5 MG/DL Alkaline Phosphatase 55 U/L Aspartate Amino Transf (AST/SGOT) 20 U/L Alanine Aminotransferase (ALT/SGPT) 36 U/L Total Bilirubin 0.4 MG/DL Sodium Level 137 MEQ/L 139 MEQ/L Potassium Level 3.8 MEQ/L 3.9 MEQ/L Chloride Level 103 MEQ/L 107 MEQ/L Carbon Dioxide Level 25.0 MEQ/L 25.5 MEQ/L Anion Gap 9 MEQ/L 7 MEQ/L Estimat Glomerular Filtration Rate 65 ML/MIN 80 ML/MIN Physical Examination HEENT: Normocephalic; atraumatic; no jaundice. CHEST: CTA CARDIAC: RRR, systolic murmur ABDOMEN: Soft, nondistended, nontender; no hepatosplenomegaly; bowel sounds are present in all four quadrants. EXTREMITIES: No clubbing, cyanosis, or edema. SKIN: Normal; no rash; no jaundice. 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 (Radha Leahy) Assessment and Plan Plan ASSESSMENT: - Anemia with Hemoccult positive stool. No hx PUD. (+) Hx Colon cancer (s/p hemicolectomy). Last colonoscopy 2014, had colon polyps. Decreased appetite, 5 lb weight loss, and fatige for 1-2 weeks. No other GI symptoms. Found to have anemia on outpatient labs and referred to ER for further evaluation and tx. S/P 2 units PRBC. HH 8.4/27.0. Recommend EGD/Colonoscopy, but will need cardiac clearance prior to scheduling. Will consult Dr. Moran for clearance. PPI. Monitor HH - Aortic Stenosis. Pt followed by Dr. Moran and is scheduled to have cardiac catheterization on 04/23. Will need to get cardiac clearance prior to EGD/Colonoscopy. - DM, HTN, Hyperlipidemia, BPH per attending - Hx Stage IIA Colon cancer. S/P hemicolectomy. Did not require chemo/rdx. Last colonoscopy [address] Thorne, had polyps removed. PLAN: - Clear liquids - PPI - Monitor HH - Transfuse as necessary - Consult Dr. Moran for cardiac clearance prior to EGD/Colonoscopy - Notify GI once seen by Dr. Moran so that bowel prep and consents can be ordered if he gives cardiac clearance - Supportive care - Further recommendations to follow based on results of above - Pt seen and examined by Dr. Hernandez and myself and this note is written on his behalf (Radha Leahy) Physician Comments Seen and examined with PAD CUTTER, egd/colonoscopy planned for tomorrow. Discussed with Dr. Moran, moderate risk for sedation. Golytle prep. Thankyou (Lulu Hernandez MD) Radha Leahy Apr 17, 2017 11:29 Lulu Hernandez MD Apr 17, 2017 16:06
[2017-04-17] MEDS ORDERED: PEG (High)/E-LYTE SOLN 4000 ML BTL PO ONE (15:30)
--- NOTE | 2017-04-17 16:00 | PD.CONS ---
HPI Service Cardiology physicians Consult Requested By Reason for Consult Cardiac clearance for endoscopy and colonoscopy Primary Care Physician Filiberto Alvarez MD History of Present Illness The patient is a 71 year old male known to our office with a cardiac history of aortic stenosis, hypertension, diabetes, and chronic RBBB. Other notable history is colon cancer. The patient presented to our office on Saturday complaining of symptoms of exertional SOB and chest pain and lightheadedness. Cardiac echo was completed that revealed progression of aortic stenosis to severe. He was then evaluated by his PCP who complete labwork that revealed hemoglobin 6.8. Since admission, he has been transfused two units of PRBCs. He feels a little better. He admits to a recent history of black, odorous stools. (Ella Merlos) Review of Systems Consitutional: COMPLAINS OF: Fatigue, DENIES: Fever, Chills, Weight gain, Weight loss Eyes: DENIES: Amaurosis Fugax, Change in vision HEENT: COMPLAINS OF: Lightheadedness, DENIES: Change in hearing Respiratory: COMPLAINS OF: Shortness of breath, DENIES: See HPI, Cough, Snoring , Wheezing, Sputum production Cardiovascular: COMPLAINS OF: Chest pain, DENIES: See HPI, Palpitations, Syncope, Tachycardia Gastrointestinal: COMPLAINS OF: Melena, DENIES: Nausea, Vomiting, Change in bowel habits, Reflux Genitourinary: DENIES: Urinary incontinence, Difficulty voiding Integumentary: DENIES: Rash Neurologic: DENIES: Tingling or numbness, Memory problems, Poor Balance, Stroke symptoms Musculoskeletal: DENIES: Joint pain, Muscle pain, Limited range of motion, Back pain Psychiatric: DENIES: Anxiety, Depression, Sleep disturbances Hematologic: DENIES: Bruising tendencies, Bleeding tendencies Endocrine: DENIES: Weight gain, Weight loss, Thyroid disease (Ella Merlos ) Past Family Social History Allergies: Coded Allergies: No Known Allergies (Unverified , 04/12/17) Past Medical History See HPI Past Surgical History Colon cancer 2014 hernia 1984 Reported Medications Reported Meds & Active Scripts Active Medrol Dosepak (Methylprednisolone) 4 Mg Dspk 4 Mg PO DIRECTED Per Pharmacist direction Glipizide 5 Mg Tab 5 Mg PO BIDAC Take 30 minutes before a meal Metformin (Metformin HCl) 1,000 Mg Tab 1,000 Mg PO BID With a meal Tamsulosin (Tamsulosin HCl) 0.4 Mg Cap 0.4 Mg PO HS Meloxicam 15 Mg Tab 15 Mg PO DAILY [Lancets] 1 Units .XX BID Onetouch Ultra Delica Lancets Atorvastatin (Atorvastatin Calcium) 40 Mg Tab 40 Mg PO HS Proscar (Finasteride) 5 Mg Tab 5 Mg PO DAILY Do not crush. [Test Strips] 1 Units .XX BID Onetouch Ultra Blue Test STrips [Accucheck Michelle] 1 U BID Glucometer - check blood sugars 2x daily Reported Aspirin 81 Mg Chew 81 Mg CHEW DAILY Accu-Chek Fastclix Lancet 1 Mis Mis 1 Ea .ROUTE DIRECTED Accu-Chek Strips Michelle Plus (Blood Glucose Test Strips) 1 Nano Nano 1 Strips .ROUTE BID Viagra (Sildenafil Citrate) 100 Mg Tab 100 Mg PO DAILY PRN Onetouch Ultra Mini W/Device (Device) 1 Kit Kit 1 Kit .ROUTE DIRECTED Active Ordered Medications Current Medications Medications (Trade) Dose Ordered Sig/Luis Fernando Route Start Time Stop Time Status Last Admin (NS Flush) 2 ml UNSCH PRN IV FLUSH 04/16/17 21:30 (NS Flush) 2 ml BID IV FLUSH 04/17/17 09:00 04/17/17 09:00 (Flomax) 0.4 mg HS PO 04/16/17 22:00 04/16/17 22:46 (Proscar) 5 mg HS PO 04/16/17 21:50 04/16/17 22:46 (D50w (Vial) Inj) 50 ml UNSCH PRN IV PUSH 04/16/17 23:15 (Glucagon Inj) 1 mg UNSCH PRN OTHER 04/16/17 23:15 (NovoLOG SUPPLEMENTAL SCALE) 1 ACHS SLIDING SCALE SQ 04/17/17 08:00 04/17/17 12:00 (Protonix Inj) 40 mg Q24H IV PUSH 04/17/17 09:00 04/17/17 08:37 (Vasotec Inj) 1.25 mg Q6H PRN IV PUSH 04/16/17 23:15 (Zofran Inj) 4 mg Q6H PRN IV PUSH 04/16/17 23:15 (Tylenol) 325 mg Q4H PRN PO 04/16/17 23:15 (Benadryl) 25 mg Q4H PRN PO 04/16/17 23:30 (Shu-Colace) 1 tab BID PRN PO 04/16/17 23:45 Family History one brother with heart disease Social History Lives alone, sister lives in [place], noncmoker and no ETOH (Ella Merlos) Physical Exam Vital Signs Vital Signs Date Time Temp Pulse Resp B/P (MAP) Pulse Ox O2 Delivery O2 Flow Rate FiO2 04/17/17 12:00 98.1 66 18 125/60 (81) 99 04/17/17 09:50 99 04/17/17 08:00 97.9 74 18 131/63 (85) 99 04/17/17 05:18 98.2 62 16 119/59 97 04/17/17 04:00 98.1 61 19 110/54 (72) 96 04/17/17 02:07 98.0 70 18 109/55 97 04/17/17 00:00 98.8 76 21 123/72 (89) 100 04/16/17 22:40 98.8 71 18 117/77 (90) 98 04/16/17 22:05 04/16/17 22:00 Room Air 04/16/17 22:00 69 04/16/17 21:56 99 04/16/17 20:13 99 Room Air 04/16/17 19:25 79 20 129/57 (81) 99 Room Air 04/16/17 18:29 98.8 81 20 129/58 (81) 94 Room Air Physical Exam GENERAL: Middle aged male with family bedside SKIN: Warm and dry. HEAD: Atraumatic. Normocephalic. EYES: pallor ENT: No nasal bleeding or discharge. NECK: Trachea midline. Bilateral carotid bruits CARDIOVASCULAR: Regular rate and rhythm. Systolic mumur RESPIRATORY: No accessory muscle use. Clear to auscultation. Breath sounds equal bilaterally. GASTROINTESTINAL: Abdomen soft, non-tender, nondistended. MUSCULOSKELETAL: Extremities without clubbing, cyanosis, or edema. No obvious deformities. NEUROLOGICAL: Awake and alert. No obvious cranial nerve deficits. Motor grossly within normal limits. Five out of 5 muscle strength in the arms and legs. Normal speech. PSYCHIATRIC: Appropriate mood and affect; insight and judgment normal. Laboratory Laboratory Tests Test 04/16/17 19:45 04/17/17 06:01 White Blood Count 6.4 5.7 Red Blood Count 3.81 4.07 Hemoglobin 7.0 8.4 Hematocrit 23.5 27.0 Mean Corpuscular Volume 61.8 66.2 Mean Corpuscular Hemoglobin 18.4 20.6 Mean Corpuscular Hemoglobin Concent 29.8 31.1 Red Cell Distribution Width 19.4 22.5 Platelet Count 426 353 Mean Platelet Volume 8.6 7.7 Neutrophils (%) (Auto) 55.1 Lymphocytes (%) (Auto) 32.0 Monocytes (%) (Auto) 10.7 Eosinophils (%) (Auto) 0.9 Basophils (%) (Auto) 1.3 Neutrophils # (Auto) 3.5 Lymphocytes # (Auto) 2.0 Monocytes # (Auto) 0.7 Eosinophils # (Auto) 0.1 Basophils # (Auto) 0.1 CBC Comment DIFF FINAL Differential Comment Prothrombin Time 10.6 Prothromb Time International Ratio 1.0 Activated Partial Thromboplast Time 24.5 Blood Urea Nitrogen 18 19 Creatinine 1.12 0.94 Random Glucose 114 100 Total Protein 6.9 Albumin 3.9 Calcium Level 9.3 8.5 Alkaline Phosphatase 55 Aspartate Amino Transf (AST/SGOT) 20 Alanine Aminotransferase (ALT/SGPT) 36 Total Bilirubin 0.4 Sodium Level 137 139 Potassium Level 3.8 3.9 Chloride Level 103 107 Carbon Dioxide Level 25.0 25.5 Anion Gap 9 7 Estimat Glomerular Filtration Rate 65 80 (Ella Merlos) Result Diagram: 04/17/1760004/17/17600 Assessment and Plan Assessment and Plan Severe anemia Presumed GI bleed Severe aortic stenosis History of colon cancer PLAN: The patient is clear from a cardiac standpoint at an intermediate risk for endoscopy and colonoscopy We will favor higher BP due to aortic stenosis The patient was seen and evaluated by Dr Moran who completed face to face encounter and physical exam and participated in evaluation and management (Ella Merlos) Assessment and Plan The exam, history, and the medical decision-making described in the above note were completed with the assistance of the mid-level provider. I reviewed and agree with the findings presented. I attest that I had a [id number] encounter with the patient on the same day, and personally performed and documented my assessment and findings in the medical record. Seems to be doing better, for colonoscopy tomorrow. (Aria Moran MD) Ella Merlos Apr 17, 2017 16:00 Aria Moran MD Apr 18, 2017 15:34
[2017-04-17] MEDS: FINASTERIDE 5 MG TAB PO SCH (20:31)
[2017-04-17] MEDS: TAMSULOSIN HCL 0.4 MG CAP PO SCH (20:31)
[2017-04-18] VITALS: BP 159/72; PULSE 64; RESP 18; TEMP 97.5; O2SAT 97
[2017-04-18 04:00] VITALS: BP 115/55; PULSE 63; RESP 16; TEMP 97.7; O2SAT 97
[2017-04-18 07:34] LABS: HEMATOCRIT 26.8 % (39.0-51.0); MEAN CELL VOLUME 65.7 FL (80.0-100.0); MEAN CORPUSCULAR HEMOGLOBIN 20.7 PG (27.0-34.0); MEAN CORPUSCULAR HGB CONC 31.4 % (32.0-36.0); PLATELET COUNT 341 TH/MM3 (150-450); RED BLOOD COUNT 4.08 MIL/MM3 (4.50-5.90); RED CELL DISTRIBUTION WIDTH 23.9 % (11.6-17.2); REVIEW FLAG FINAL
[2017-04-18 08:00] VITALS: BP 147/65; PULSE 60; PULSE 61; RESP 20; TEMP 97.6; O2SAT 97
[2017-04-18] MEDS: INSULIN ASPART SUPPLEMENTAL SCALE SQ SCH ×4 (08:00→21:00)
[2017-04-18 08:03] LABS: BICARBONATE 25.3 MEQ/L (21.0-32.0); POTASSIUM 3.7 MEQ/L (3.5-5.1)
[2017-04-18] MEDS ORDERED: KETAMINE HCL 500 MG/5 ML VIAL ONE (09:07)
--- NOTE | 2017-04-18 10:23 | GIPROC ---
[facility] [address] [facility]. [facility], [address] EGD PROCEDURE REPORT EXAM DATE: 04/18/2017 PATIENT NAME: Johnny Stacy MR #: [id number] BIRTHDATE: 1945 ATTENDING: Lulu Hernandez MD ORDER #: [id number] GLAZIER ARTIST: April Gagnon and Marta Mills STATUS: inpatient INDICATIONS: The patient is a 71 yr old male here for an EGD due to anemia and iron deficiency anemia PROCEDURE PERFORMED: EGD w/ biopsy MEDICATIONS: Per Anesthesia and None. TOPICAL ANESTHETIC: CONSENT: The patient understands the risks and benefits of the procedure and understands that these risks include, but are not limited to: sedation, allergic reaction, infection, perforation and/or bleeding. Alternative means of evaluation and treatment include, among others: physical exam, x-rays, and/or surgical intervention. The patient elects to proceed with this endoscopic procedure. medical equipment was checked for proper function. Hand hygiene and appropriate measures for infection prevention was taken. After the risks, benefits and alternatives of the procedure were thoroughly explained, Informed consent was verified, confirmed and timeout was successfully executed by the treatment team. The patient was anesthetized with topical anesthesia and the EC-[id number] (Pedi C) endoscope was introduced through the mouth and advanced to the second portion of the duodenum. Retroflexed views revealed no abnormalities The gastroscope was then slowly withdrawn and removed. ESOPHAGUS: The mucosa of the esophagus appeared normal. STOMACH: There was mild gastritis in the gastric antrum. A biopsy was performed using cold forceps. Sample sent for histology. DUODENUM: The duodenal mucosa appeared normal in the 2nd part of the duodenum. ADVERSE EVENTS: There were no complications. IMPRESSIONS: 1. The esophagus appeared normal 2. There was mild gastritis in the gastric antrum; biopsy was performed 3. Normal duodenal mucosa in the 2nd part of the duodenum 4. Retroflexed views revealed no abnormalities RECOMMENDATIONS: 1. Await biopsy results. Biopsy results will not be ready for 7-10 days. If you don't hear from us in two weeks, call our office for biopsy results. 2. Anti-reflux regimen PATIENT CONDITION: stable DISPOSITION: Inpatient REPEAT EXAM: Return 3 years EGD pending biopsy results Lulu Hernandez MD eSigned: Lulu Hernandez MD 04/18/2017 10:23 AM cc: PATIENT NAME: Johnny Stacy MR#: [id number]
[2017-04-18] MEDS ORDERED: DO NOT ADM ANY ANTICOAGULANT DRUGS PRN (10:25)
--- NOTE | 2017-04-18 10:28 | GIPROC ---
[facility] [address] [facility]. [facility], [address] COLONOSCOPY PROCEDURE REPORT EXAM DATE: 04/18/2017 PATIENT NAME: Johnny Stacy MR #: [id number] BIRTHDATE: 1945 ENDOSCOPIST: Lulu Hernandez MD ORDER #: [id number] KITCHEN LEAD: April Gagnon and Marta Mills STATUS: inpatient INDICATIONS: The patient is a 71 yr old male here for a colonoscopy due to iron deficiency anemia PROCEDURE PERFORMED: Colonoscopy, incomplete MEDICATIONS: Per Anesthesia and None. PREP QUALITY: poor PREP TYPE:GoLytely ESTIMATED BLOOD LOSS: None CONSENT: The patient understands the risks and benefits of the procedure and understands that these risks include, but are not limited to: sedation, allergic reaction, infection, perforation and/or bleeding. Alternative means of evaluation and treatment include, among others: physical exam, x-rays, and/or surgical intervention. The patient elects to proceed with this endoscopic procedure. medical equipment was checked for proper function. Hand hygiene and appropriate measures for infection prevention was taken. After the risks, benefits and alternatives of the procedure were thoroughly explained, Informed consent was verified, confirmed and timeout was successfully executed by the treatment team. A digital exam revealed external hemorrhoids The Pentax EC-3490Li endoscope was introduced through the anus and advanced to the sigmoid colon. The instrument was then slowly withdrawn as the colon was fully examined. COLON FINDINGS: The colonic mucosa appeared normal. Retroflexed views revealed internal hemorrhoids and Retroflexed views revealed medium internal hemorrhoids The scope was then completely withdrawn from the patient and the procedure terminated. ADVERSE EVENTS: There were no complications. IMPRESSIONS: 1. The colonic mucosa appeared normal 2. Retroflexed views revealed internal hemorrhoids 3. Retroflexed views revealed medium internal hemorrhoids 4. Revealed external hemorrhoids RECOMMENDATIONS: Liquid diet, continue prep. RECALL: Return 1 day Colonoscopy Lulu Hernandez MD eSigned: Lulu Hernandez MD 04/18/2017 10:27 AM cc:
[2017-04-18] MEDS: PANTOPRAZOLE SODIUM 40 MG VIAL IV PUSH SCH (10:55)
[2017-04-18] MEDS ORDERED: MAGNESIUM CITRATE SOLN 300 ML BTL PO ONE ×2 (11:00→14:00)
[2017-04-18] MEDS: SODIUM CHLORIDE 0.9% FLUSH 10 ML FLUSH IV FLUSH SCH ×2 (11:00→20:32)
--- NOTE | 2017-04-18 11:36 | HHI.FPPN ---
Subjective Remarks Patient seen and examined. Temperature 97.6, pulse 60, respiratory rate 20, blood pressure 147/65, pulse ox 97 on room air. He had completed his endoscopy and colonoscopy. The endoscopy showed gastritis. Colonoscopy was incomplete due to poor prep. He is said that he is going to have to repeat the colonoscopy but he understands the importance of doing this. He denies any blood in his stool or urine. He reports that he is feeling stronger and less dizzy and he has his blood transfusion. Endorses: None Denies: Fever, chills, nausea, vomiting, shortness of breath, chest pain, headache, abdominal pain, calf pain All other review of symptoms were negative (Arnold Cramer MD, R3) Objective Vitals Vital Signs Date Time Temp Pulse Resp B/P (MAP) Pulse Ox O2 Delivery O2 Flow Rate FiO2 04/18/17 10:59 98.3 55 18 140/66 (90) 98 Room Air 04/18/17 10:45 58 17 141/66 (91) 98 Room Air 04/18/17 10:30 54 13 111/55 (73) 98 Room Air 04/18/17 10:27 98.3 55 16 121/58 (79) 99 Nasal Cannula 2 04/18/17 08:00 97.6 60 20 147/65 (92) 97 04/18/17 08:00 61 04/18/17 04:00 97.7 63 16 115/55 (75) 97 04/18/17 04:00 Room Air 04/18/17 00:00 Room Air 04/18/17 00:00 97.5 64 18 159/72 (101) 97 04/17/17 20:20 60 04/17/17 20:00 Room Air 04/17/17 20:00 97.6 65 17 144/68 (93) 98 04/17/17 16:00 97.7 97 18 139/63 (88) 98 04/17/17 12:00 98.1 66 18 125/60 (81) 99 I/O 04/17/17 04/17/17 04/17/17 04/18/17 04/18/17 04/18/17 07:00 15:00 23:00 07:00 15:00 23:00 Intake Total 800 ml 480 ml 1875 ml 300 ml Output Total 450 ml 200 ml 850 ml Balance 350 ml 280 ml 1025 ml 300 ml Intake Oral 0 ml 480 ml 1875 ml Packed Cells 800 ml Other 300 ml Output Urine Total 450 ml 200 ml 850 ml # Voids 3 6 # Bowel Movements 0 1 7 (Arnold Cramer MD, R3) Result Diagram: 04/18/1762504/18/17625 Objective Remarks GENERAL: Well-nourished, well-developed patient. No acute distress. SKIN: Warm and dry. No rash. EYES: No scleral icterus. No injection or drainage. PERRLA. EOMI. HENT: Normocephalic. Atraumatic. MMM. NECK: No visible JVD or lymphadenopathy. CARDIOVASCULAR: Regular rate and rhythm. Harsh 4/6 systolic murmur RESPIRATORY: Regular rate and rhythm GASTROINTESTINAL: Abdomen nondistended. Nontender to palpation MUSCULOSKELETAL: Strength grossly WNL. BACK: Without obvious deformity. NEURO/PSYCH: Afocal. Awake, alert, and oriented x3. Medications and IVs Current Medications Medications (Trade) Dose Ordered Sig/Luis Fernando Route Start Time Stop Time Status Last Admin (NS Flush) 2 ml UNSCH PRN IV FLUSH 04/16/17 21:30 (NS Flush) 2 ml BID IV FLUSH 04/17/17 09:00 04/18/17 11:00 (Flomax) 0.4 mg HS PO 04/16/17 22:00 04/17/17 20:31 (Proscar) 5 mg HS PO 04/16/17 21:50 04/17/17 20:31 (D50w (Vial) Inj) 50 ml UNSCH PRN IV PUSH 04/16/17 23:15 (Glucagon Inj) 1 mg UNSCH PRN OTHER 04/16/17 23:15 (NovoLOG SUPPLEMENTAL SCALE) 1 ACHS SLIDING SCALE SQ 04/17/17 08:00 04/17/17 17:00 (Protonix Inj) 40 mg Q24H IV PUSH 04/17/17 09:00 04/18/17 10:55 (Vasotec Inj) 1.25 mg Q6H PRN IV PUSH 04/16/17 23:15 (Zofran Inj) 4 mg Q6H PRN IV PUSH 04/16/17 23:15 (Tylenol) 325 mg Q4H PRN PO 04/16/17 23:15 (Benadryl) 25 mg Q4H PRN PO 04/16/17 23:30 (Shu-Colace) 1 tab BID PRN PO 04/16/17 23:45 (Citroma Liq) 300 ml ONCE ONCE PO 04/18/17 11:00 04/18/17 11:01 UNV (Citroma Liq) 300 ml ONCE ONCE PO 04/18/17 11:00 04/18/17 11:01 UNV (Arnold Cramer MD, R3) A/P Assessment and Plan 71 y/o M with PMH of diabetes, hypertension, and colon cancer status post left hemicolectomy in 2013 presents with symptomatic anemia, Hemoccult positive. Patient will be admitted for blood transfusion and evaluation by gastroenterology due to concern for recurrence of colon cancer. Discharge Planning Anticipate discharged tomorrow after colonoscopy (Arnold Cramer MD, R3) Attending Attestation Pt. examined and case discussed with resident physician I have read the above note and agree with the assessment/plan as discussed with me I was involved in all medical decision making for this patient. Filiberto Alvarez MD (Filiberto Alvarez MD) Problem List: (1) Symptomatic anemia ICD Codes: D64.9 - Anemia, unspecified Status: Acute Plan: Current hemoglobin and hematocrit is 8.4/26.8 respectively stable at this time. -Status post transfuse 2 units PRBC -Repeat CBC in the am (2) GI bleed ICD Codes: K92.2 - Gastrointestinal hemorrhage, unspecified Status: Chronic Plan: -Hemoccult positive in the ED in the setting of colon cancer s/p hemicolectomy in 2013 -Suspect chronic GI bleed, will have to rule out colon cancer recurrence -GI consulted to evaluate for colonoscopy/EGD -EGD performed: Gastritis seen with biopsy taken -Colonoscopy performed: Poor prep, repeat tomorrow in a.m. -Liquid diet -GoLYTELY -Holding Aspirin and Meloxicam (3) Diabetes mellitus type 2 in nonobese ICD Codes: E11.9 - Type 2 diabetes mellitus without complications Status: Chronic Plan: -Holding home metformin and glipizide -Low dose sliding scale insulin with accuchecks (4) Valvular heart disease ICD Codes: I38 - Endocarditis, valve unspecified Status: Chronic Plan: -ECHO from 11/2016 performed as outpatient shows EF of 62% with moderate aortic stenosis, mild MR, mild-moderate TR, and mild pulmonary hypertension -Pt had recent visit with his gunner's mate g Dr. Moran on 04/15/17 who scheduled him for a heart cath next week -Cardiology consulted, recommendations appreciated: Cleared for EGD and colonoscopy by cardiology. -Holding aspirin due to GI bleed (5) Hypertension ICD Codes: I10 - Hypertension Status: Acute Plan: -Currently normotensive -Not on any antihypertensives at home -Vasotec prn for SBP>170 or DBP > 100 or HR >65 (6) Hyperlipidemia ICD Codes: E78.5 - Hyperlipidemia Status: Acute Plan: Holding atorvastatin due to complaints of leg cramps (7) BPH (benign prostatic hyperplasia) ICD Codes: N40.0 - Benign prostatic hyperplasia without lower urinary tract symptoms Plan: -Continue home Tamsulosin 0.4 mg PO HS and Finasteride 5mg PO daily (8) FEN/DVT PPX/GI PPX/Nursing Orders Plan: Fluids: received 2 units PRBC Electrolytes: Will monitor and replace as needed Nutrition: Liquid Diet DVT Prophylaxis: Bilateral SCDs, Holding pharmacological prophylaxis due to GI bleed GI Prophylaxis: Protonix 40mg IV daily Constipation prophylaxis: Pericolace 1 tab PO BID PRN PRN Medications Tylenol 325 mg by mouth every 4 hours when necessary pain 1-10 or temperature greater than 100.4F Zofran 4 mg IV push every 6 hours when necessary nausea vomiting Vasotec 1.25 mg IV PRN SBP greater than 170 or DBP greater than 100 -Vitals Q4h -Monitor I's and O's -Fall precautions -production sanitizer with telemetry with continuous vital signs -Activity bed rest, can get up as long as he does well today -Case management consult to assist with discharge disposition, hopefully he can go back home as he has been living independently Disposition: Anticipate discharge tomorrow following colonoscopy/results (Arnold Cramer MD, R3) Problem Qualifiers (1) GI bleed: Qualified Codes: K92.2 - Gastrointestinal hemorrhage, unspecified (2) Hypertension: Qualified Codes: I10 - Essential (primary) hypertension (3) Hyperlipidemia: Qualified Codes: E78.00 - Pure hypercholesterolemia, unspecified (4) BPH (benign prostatic hyperplasia): Arnold Cramer MD, R3 Apr 18, 2017 11:36 Filiberto Alvarez MD Apr 19, 2017 14:26
[2017-04-18 12:00] VITALS: BP 148/66; PULSE 55; RESP 18; TEMP 97.3; O2SAT 100
[2017-04-18] MEDS ORDERED: SODIUM CHLORIDE 0.9% 20 ML VIAL IV ONE (12:00)
[2017-04-18] MEDS ORDERED: PROPOFOL 200 MG/20 ML AMP IV ONE (12:00)
[2017-04-18] MEDS ORDERED: PHENYLEPH/NS 1000 MCG/10 ML SYR IV ONE (12:00)
[2017-04-18] MEDS ORDERED: MIDAZOLAM HCL 2 MG/2 ML VIAL IV ONE (12:00)
--- NOTE | 2017-04-18 12:52 | PD.CARD.PN ---
Subjective Subjective Remarks The patient denies CP, SOB or near syncope. Hbg improved. Unable to complete colonoscopy today incomplete prep. Internal and external hemorrhoids visualized. Denies bloody stools Objective Medications Current Medications Medications (Trade) Dose Ordered Sig/Luis Fernando Route Start Time Stop Time Status Last Admin (NS Flush) 2 ml UNSCH PRN IV FLUSH 04/16/17 21:30 (NS Flush) 2 ml BID IV FLUSH 04/17/17 09:00 04/18/17 11:00 (Flomax) 0.4 mg HS PO 04/16/17 22:00 04/17/17 20:31 (Proscar) 5 mg HS PO 04/16/17 21:50 04/17/17 20:31 (D50w (Vial) Inj) 50 ml UNSCH PRN IV PUSH 04/16/17 23:15 (Glucagon Inj) 1 mg UNSCH PRN OTHER 04/16/17 23:15 (NovoLOG SUPPLEMENTAL SCALE) 1 ACHS SLIDING SCALE SQ 04/17/17 08:00 04/17/17 17:00 (Protonix Inj) 40 mg Q24H IV PUSH 04/17/17 09:00 04/18/17 10:55 (Vasotec Inj) 1.25 mg Q6H PRN IV PUSH 04/16/17 23:15 (Zofran Inj) 4 mg Q6H PRN IV PUSH 04/16/17 23:15 (Tylenol) 325 mg Q4H PRN PO 04/16/17 23:15 (Benadryl) 25 mg Q4H PRN PO 04/16/17 23:30 (Shu-Colace) 1 tab BID PRN PO 04/16/17 23:45 (Citroma Liq) 300 ml ONCE ONCE PO 04/18/17 14:00 04/18/17 14:01 Vital Signs / I&O Vital Signs Date Time Temp Pulse Resp B/P (MAP) Pulse Ox O2 Delivery O2 Flow Rate FiO2 04/18/17 10:59 98.3 55 18 140/66 (90) 98 Room Air 04/18/17 10:45 58 17 141/66 (91) 98 Room Air 04/18/17 10:30 54 13 111/55 (73) 98 Room Air 04/18/17 10:27 98.3 55 16 121/58 (79) 99 Nasal Cannula 2 04/18/17 08:00 97.6 60 20 147/65 (92) 97 04/18/17 08:00 61 04/18/17 04:00 97.7 63 16 115/55 (75) 97 04/18/17 04:00 Room Air 04/18/17 00:00 Room Air 04/18/17 00:00 97.5 64 18 159/72 (101) 97 04/17/17 20:20 60 04/17/17 20:00 Room Air 04/17/17 20:00 97.6 65 17 144/68 (93) 98 04/17/17 16:00 97.7 97 18 139/63 (88) 98 I/O 04/17/17 04/17/17 04/17/17 04/18/17 04/18/17 04/18/17 06:59 14:59 22:59 06:59 14:59 22:59 Intake Total 800 ml 480 ml 1875 ml 300 ml Output Total 450 ml 200 ml 850 ml Balance 350 ml 280 ml 1025 ml 300 ml Intake Oral 0 ml 480 ml 1875 ml Packed Cells 800 ml Other 300 ml Output Urine Total 450 ml 200 ml 850 ml # Voids 3 6 # Bowel Movements 0 1 7 Physical Exam GENERAL: Middle age man sitting on side of the bed SKIN: Warm and dry. HEAD: Normocephalic. EYES: No scleral icterus. No injection or drainage. NECK: Supple, trachea midline. No JVD or lymphadenopathy. CARDIOVASCULAR: Systolic murmur, reg rate and rhythm RESPIRATORY: Breath sounds equal bilaterally. No accessory muscle use. GASTROINTESTINAL: Abdomen soft, non-tender, nondistended. MUSCULOSKELETAL: No cyanosis, or edema. BACK: Nontender without obvious deformity. No CVA tenderness. Laboratory Laboratory Tests Test 04/18/17 06:26 White Blood Count 6.0 TH/MM3 Red Blood Count 4.08 MIL/MM3 Hemoglobin 8.4 GM/DL Hematocrit 26.8 % Mean Corpuscular Volume 65.7 FL Mean Corpuscular Hemoglobin 20.7 PG Mean Corpuscular Hemoglobin Concent 31.4 % Red Cell Distribution Width 23.9 % Platelet Count 341 TH/MM3 Mean Platelet Volume 7.8 FL Blood Urea Nitrogen 14 MG/DL Creatinine 0.83 MG/DL Random Glucose 97 MG/DL Calcium Level 8.5 MG/DL Sodium Level 140 MEQ/L Potassium Level 3.7 MEQ/L Chloride Level 107 MEQ/L Carbon Dioxide Level 25.3 MEQ/L Anion Gap 8 MEQ/L Estimat Glomerular Filtration Rate 92 ML/MIN Assessment and Plan Assessment and Plan Severe anemia s/p 2 units PRBCs. Hbg now 8.4 Presumed GI bleed Severe aortic stenosis History of colon cancer PLAN: The patient is stable from a cardiac standpoint. Please reconsult for acute changes. We will favor higher BP due to aortic stenosis. We will follow up the patient in the office in 3-4 weeks. Understands to call sooner with evidence of SOB, edema, CP or near syncope. The patient was seen and evaluated by Dr Moran who completed face to face encounter and physical exam and participated in evaluation and management Ella Merlos Apr 18, 2017 12:52
[2017-04-18 16:00] VITALS: BP 148/66; PULSE 56; RESP 18; TEMP 97.3; O2SAT 97
[2017-04-18 20:00] VITALS: BP 138/64; PULSE 56; PULSE 67; RESP 18; TEMP 98; O2SAT 100
[2017-04-18] MEDS: FINASTERIDE 5 MG TAB PO SCH (20:32)
[2017-04-18] MEDS: TAMSULOSIN HCL 0.4 MG CAP PO SCH (20:32)
[2017-04-19] VITALS: BP 128/60; PULSE 59; RESP 18; TEMP 99.8; O2SAT 99
[2017-04-19 04:00] VITALS: BP 123/59; PULSE 55; RESP 20; TEMP 98.1; O2SAT 98
[2017-04-19 07:14] LABS: HEMATOCRIT 28.5 % (39.0-51.0); MEAN CELL VOLUME 65.9 FL (80.0-100.0); MEAN CORPUSCULAR HEMOGLOBIN 20.5 PG (27.0-34.0); MEAN CORPUSCULAR HGB CONC 31.1 % (32.0-36.0); PLATELET COUNT 336 TH/MM3 (150-450); RED BLOOD COUNT 4.33 MIL/MM3 (4.50-5.90); RED CELL DISTRIBUTION WIDTH 24.2 % (11.6-17.2); REVIEW FLAG FINAL; WHITE BLOOD COUNT 5.6 TH/MM3 (4.0-11.0)
[2017-04-19 08:00] VITALS: BP 146/66; PULSE 66; RESP 18; TEMP 97.8; O2SAT 98
[2017-04-19] MEDS: INSULIN ASPART SUPPLEMENTAL SCALE SQ SCH (08:00)
[2017-04-19 08:08] LABS: BICARBONATE 24.2 MEQ/L (21.0-32.0); POTASSIUM 3.6 MEQ/L (3.5-5.1)
[2017-04-19 08:15] VITALS: PULSE 69
[2017-04-19] MEDS: PANTOPRAZOLE SODIUM 40 MG VIAL IV PUSH SCH (08:22)
[2017-04-19] MEDS ORDERED: SODIUM CHLORID 0.9% 500 ML IV PRN (08:30)
[2017-04-19] MEDS ORDERED: LACTATED RINGER'S 1000 ML IV PRN (08:30)
[2017-04-19] MEDS ORDERED: CHLORHEXIDINE GLUCONATE 2 % 1 PACK (2 CLOTHS) TOPICAL PRN (08:30)
[2017-04-19] MEDS ORDERED: INSULIN HUMAN REGULAR 1,000 UNITS/10 ML VIAL SQ PRN (08:30)
[2017-04-19] MEDS ORDERED: METOPROLOL TARTRATE 25 MG TAB PO PRN (08:30)
[2017-04-19] MEDS: SODIUM CHLORIDE 0.9% FLUSH 10 ML FLUSH IV FLUSH SCH (08:30)
[2017-04-19] MEDS ORDERED: POVIDONE IODINE 5% (ANTISEPSIS KIT) 4 APPLICATIONS EACH NARE PRN (08:30)
--- NOTE | 2017-04-19 09:58 | HHI.FPPN ---
Subjective Remarks Patient seen and examined this morning. Afebrile vital signs stable. Patient understands the plan of care today is to repeat the colonoscopy. He is hoping for good results and to get out of the hospital. He denies any feelings of fatigue or lightheadedness. He denies any recent episodes of bloody diarrhea since being in the hospital. He is glad to hear that his hemoglobin and hematocrit has remained stable. He understands the importance of getting a good colonoscopy due to his colon cancer history. Endorses: None Denies: Fever, chills, nausea, vomiting, shortness of breath, chest pain, headache, abdominal pain, calf pain All other review of symptoms were negative (Arnold Cramer MD, R3) Objective Vitals Vital Signs Date Time Temp Pulse Resp B/P (MAP) Pulse Ox O2 Delivery O2 Flow Rate FiO2 04/19/17 08:48 97.8 66 18 146/66 (92) 98 04/19/17 08:00 97.8 66 18 146/66 (92) 98 04/19/17 04:00 98.1 55 20 123/59 (80) 98 04/19/17 00:00 99.8 59 18 128/60 (82) 99 04/18/17 20:00 98.0 56 18 138/64 (88) 100 04/18/17 20:00 67 04/18/17 19:30 100 Room Air 04/18/17 16:00 97.3 56 18 148/66 (93) 97 04/18/17 12:00 97.3 55 18 148/66 (93) 100 04/18/17 10:59 98.3 55 18 140/66 (90) 98 Room Air 04/18/17 10:45 58 17 141/66 (91) 98 Room Air 04/18/17 10:30 54 13 111/55 (73) 98 Room Air 04/18/17 10:27 98.3 55 16 121/58 (79) 99 Nasal Cannula 2 I/O 04/18/17 04/18/17 04/18/17 04/19/17 04/19/17 04/19/17 07:00 15:00 23:00 07:00 15:00 23:00 Intake Total 1875 ml 300 ml 480 ml Output Total 850 ml 1000 ml Balance 1025 ml 300 ml -520 ml Intake Oral 1875 ml 480 ml Other 300 ml Output Urine Total 850 ml 1000 ml # Voids 6 # Bowel Movements 7 3 (Arnold Cramer MD, R3) Result Diagram: 04/19/1764404/19/17644 Objective Remarks GENERAL: Well-nourished, well-developed patient. No acute distress. Sitting up at the side of the bed SKIN: Warm and dry. No rash. EYES: No scleral icterus. No injection or drainage. PERRLA. EOMI. HENT: Normocephalic. Atraumatic. MMM. NECK: No visible JVD or lymphadenopathy. CARDIOVASCULAR: Regular rate and rhythm. Harsh 4/6 systolic murmur RESPIRATORY: Regular rate and rhythm GASTROINTESTINAL: Abdomen nondistended. Nontender to palpation MUSCULOSKELETAL: Strength grossly WNL. BACK: Without obvious deformity. NEURO/PSYCH: Afocal. Awake, alert, and oriented x3. Medications and IVs Current Medications Medications (Trade) Dose Ordered Sig/Luis Fernando Route Start Time Stop Time Status Last Admin (NS Flush) 2 ml UNSCH PRN IV FLUSH 04/16/17 21:30 (NS Flush) 2 ml BID IV FLUSH 04/17/17 09:00 04/19/17 08:30 (Flomax) 0.4 mg HS PO 04/16/17 22:00 04/18/17 20:32 (Proscar) 5 mg HS PO 04/16/17 21:50 04/18/17 20:32 (D50w (Vial) Inj) 50 ml UNSCH PRN IV PUSH 04/16/17 23:15 (Glucagon Inj) 1 mg UNSCH PRN OTHER 04/16/17 23:15 (NovoLOG SUPPLEMENTAL SCALE) 1 ACHS SLIDING SCALE SQ 04/17/17 08:00 04/18/17 17:32 (Protonix Inj) 40 mg Q24H IV PUSH 04/17/17 09:00 04/19/17 08:22 (Vasotec Inj) 1.25 mg Q6H PRN IV PUSH 04/16/17 23:15 (Zofran Inj) 4 mg Q6H PRN IV PUSH 04/16/17 23:15 (Tylenol) 325 mg Q4H PRN PO 04/16/17 23:15 (Benadryl) 25 mg Q4H PRN PO 04/16/17 23:30 (Shu-Colace) 1 tab BID PRN PO 04/16/17 23:45 Miscellaneous Information ALL NURSING DEPARTME... UNSCH PRN .XX 04/18/17 10:25 04/19/17 10:24 Lactated Ringer's 1,000 ml @ 30 mls/hr Q24H PRN IV 04/19/17 08:30 04/22/17 08:29 Sodium Chloride 500 ml @ 30 mls/hr [id number] PRN IV 04/19/17 08:30 04/22/17 08:29 (Lopressor) 25 mg WEB CONTENT DIRECTOR PRN PO 04/19/17 08:30 04/22/17 08:29 (Betadine 5% Antisepsis Kit) 1 applic WEB CONTENT DIRECTOR PRN EACH NARE 04/19/17 08:30 04/22/17 08:29 (Chlorhexidine 2% Cloth) 3 pack WEB CONTENT DIRECTOR PRN TOPICAL 04/19/17 08:30 04/22/17 08:29 (NovoLIN R INJ) See Protocol Table ... WEB CONTENT DIRECTOR PRN SQ 04/19/17 08:30 04/22/17 08:29 (Arnold Cramer MD, R3) A/P Assessment and Plan 71 y/o M with PMH of diabetes, hypertension, and colon cancer status post left hemicolectomy in 2013 presents with symptomatic anemia, Hemoccult positive. Patient will be admitted for blood transfusion and evaluation by gastroenterology due to concern for recurrence of colon cancer. Discharge Planning Anticipate discharged today after colonoscopy (Arnold Cramer MD, R3) Attending Attestation Pt. examined and case discussed with resident physician I have read the above note and agree with the assessment/plan as discussed with me I was involved in all medical decision making for this patient. Filiberto Alvarez MD (Filiberto Alvarez MD) Problem List: (1) Symptomatic anemia ICD Codes: D64.9 - Anemia, unspecified Status: Acute Plan: Current hemoglobin and hematocrit is 8.9/28.5 respectively stable at this time. -Status post transfuse 2 units PRBC -Follow up CBC upon discharge (2) GI bleed ICD Codes: K92.2 - Gastrointestinal hemorrhage, unspecified Status: Chronic Plan: -Hemoccult positive in the ED in the setting of colon cancer s/p hemicolectomy in 2014 -Suspect chronic GI bleed, will have to rule out colon cancer recurrence -GI consulted to evaluate for colonoscopy/EGD -EGD performed: Gastritis seen with biopsy taken -Colonoscopy performed: Poor prep, repeat plan for today 04/19/17 -Liquid diet -GoLYTELY -Holding Aspirin and Meloxicam (3) Diabetes mellitus type 2 in nonobese ICD Codes: E11.9 - Type 2 diabetes mellitus without complications Status: Chronic Plan: -Holding home metformin and glipizide -Low dose sliding scale insulin with accuchecks (4) Valvular heart disease ICD Codes: I38 - Endocarditis, valve unspecified Status: Chronic Plan: -ECHO from 11/2016 performed as outpatient shows EF of 62% with moderate aortic stenosis, mild MR, mild-moderate TR, and mild pulmonary hypertension -Pt had 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 Moran on 04/15/17 who scheduled him for a heart cath next week -Cardiology consulted, recommendations appreciated: Cleared for EGD and colonoscopy by cardiology. -Holding aspirin due to GI bleed (5) Hypertension ICD Codes: I10 - Hypertension Status: Acute Plan: -Currently normotensive -Not on any antihypertensives at home -Vasotec prn for SBP>170 or DBP > 100 or HR >65 (6) Hyperlipidemia ICD Codes: E78.5 - Hyperlipidemia Status: Acute Plan: Holding atorvastatin due to complaints of leg cramps (7) BPH (benign prostatic hyperplasia) ICD Codes: N40.0 - Benign prostatic hyperplasia without lower urinary tract symptoms Plan: -Continue home Tamsulosin 0.4 mg PO HS and Finasteride 5mg PO daily (8) FEN/DVT PPX/GI PPX/Nursing Orders Plan: Fluids: By mouth intake Electrolytes: Will monitor and replace as needed Nutrition: Liquid Diet DVT Prophylaxis: Bilateral SCDs, Holding pharmacological prophylaxis due to GI bleed GI Prophylaxis: Protonix 40mg IV daily Constipation prophylaxis: Pericolace 1 tab PO BID PRN PRN Medications Tylenol 325 mg by mouth every 4 hours when necessary pain 1-10 or temperature greater than 100.4F Zofran 4 mg IV push every 6 hours when necessary nausea vomiting Vasotec 1.25 mg IV PRN SBP greater than 170 or DBP greater than 100 -Vitals Q4h -Monitor I's and O's -Fall precautions -molding line assistant with 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 Disposition: Anticipate discharge today following colonoscopy/results (Arnold Cramer MD, R3) Problem Qualifiers (1) GI bleed: Qualified Codes: K92.2 - Gastrointestinal hemorrhage, unspecified (2) Hypertension: Qualified Codes: I10 - Essential (primary) hypertension (3) Hyperlipidemia: Qualified Codes: E78.00 - Pure hypercholesterolemia, unspecified (4) BPH (benign prostatic hyperplasia): Arnold Cramer MD, R3 Apr 19, 2017 09:58 Filiberto Alvarez MD Apr 19, 2017 14:27
[2017-04-19 10:51] VITALS: BP 118/63; PULSE 51; RESP 16; TEMP 96.8; O2SAT 97
--- NOTE | 2017-04-19 10:52 | GIPROC ---
[facility] [address] [facility]. [facility], [address] COLONOSCOPY PROCEDURE REPORT EXAM DATE: 04/19/2017 PATIENT NAME: Johnny Stacy MR #: [id number] BIRTHDATE: 1945 ENDOSCOPIST: Lulu Hernandez MD ORDER #: [id number] TOOL AND DIE TECHNICIAN: Simon Holland and Marta Mills STATUS: inpatient INDICATIONS: The patient is a 71 yr old male here for a colonoscopy due to iron deficiency anemia PROCEDURE PERFORMED: Colonoscopy with biopsy MEDICATIONS: None and Per Anesthesia. PREP QUALITY: The [place] Bowel Prep Score was Right colon 2, Mid colon 2, and Left colon 3. Total = 7. PREP TYPE:GoLytely ESTIMATED BLOOD LOSS: None CONSENT: The patient understands the risks and benefits of the procedure and understands that these risks include, but are not limited to: sedation, allergic reaction, infection, perforation and/or bleeding. Alternative means of evaluation and treatment include, among others: physical exam, x-rays, and/or surgical intervention. The patient elects to proceed with this endoscopic procedure. medical equipment was checked for proper function. Hand hygiene and appropriate measures for infection prevention was taken. After the risks, benefits and alternatives of the procedure were thoroughly explained, Informed consent was verified, confirmed and timeout was successfully executed by the treatment team. A digital exam revealed external hemorrhoids The Pentax [id number] endoscope was introduced through the anus and advanced to the cecum, which was identified by both the appendix and ileocecal valve. The instrument was then slowly withdrawn as the colon was fully examined. COLON FINDINGS: A polypoid shaped flat polyp ranging between 3-7mm in size was found in the sigmoid colon. Multiple biopsies were performed using cold forceps. Anastomosis L colon. Retroflexed views revealed internal hemorrhoids and Retroflexed views revealed medium internal hemorrhoids The scope was then completely withdrawn from the patient and the procedure terminated. PROCEDURE WITHDRAWAL TIME:7minutes ADVERSE EVENTS: There were no complications. IMPRESSIONS: 1. A flat polyp ranging between 3-7mm in size was found in the sigmoid colon; multiple biopsies were performed using cold forceps 2. Anastomosis L colon 3. Retroflexed views revealed internal hemorrhoids 4. Retroflexed views revealed medium internal hemorrhoids 5. Revealed external hemorrhoids RECOMMENDATIONS: 1. Await biopsy results. Biopsy results will not be ready for 7-10 days. If you don't hear from us in two weeks, call our office for results. 2. Xray for Small bowel follow through RECALL: Return 1 year Colonoscopy, pending biopsy results Lulu Hernandez MD eSigned: Lulu Hernandez MD 04/19/2017 10:52 AM cc:
[2017-04-19] MEDS ORDERED: PROPOFOL 200 MG/20 ML AMP IV ONE (12:00)
[2017-04-19] MEDS ORDERED: MAGNESIUM CITRATE SOLN 300 ML BTL PO ONE ×2 (12:00→18:00)
[2017-04-19] MEDS ORDERED: LIDOCAINE HCL 1% PF 5 ML AMPULE OTHER ONE (12:00)
--- NOTE | 2017-04-19 12:40 | RADRPT ---
EXAM DATE/TIME: 04/19/2017 11:29 [place] COMPARISON: No previous studies available for comparison. INDICATIONS : Anemia. FLUORO TIME: 0.2 minutes IMAGE COUNT: 8 CONTRAST: Entero Vu 24% Barium Sulfate (24% w/v, 20% w/w) IMAGING TIME(S): 15 min, 30 min MEDICAL HISTORY : Carcinoma, colon. SURGICAL HISTORY : Colon surgery ENCOUNTER: Initial ACUITY: 2 weeks PAIN SCORE: 0/10 LOCATION: Bilateral Abdomen FINDINGS: Preliminary film is unremarkable. The stomach is grossly unremarkable. Examination of the small bowel demonstrates normal mucosal pattern involving the jejunum and ileum. There is no evidence of mass or obstruction. No intraluminal filling defects are identified. Small bowel transit time is normal at 30 minutes. Fluoroscopy of the abdomen and terminal ileum demonstrat es no abnormality. CONCLUSION: Unremarkable small bowel examination. Raymon Leslie MD FACR on April 19, 2017 at 12:38 Board Certified Radiologist. This report was verified electronically.
--- NOTE | 2017-04-19 13:54 | HHI.DCPOC ---
Discharge Care Plan Diagnosis: (1) History of colon cancer (2) GI bleed (3) Symptomatic anemia Goals to Promote Your Health * To prevent worsening of your condition and complications * To maintain your health at the optimal level Directions to Meet Your Goals Take your medications as prescribed Follow your dietary instruction Follow activity as directed Keep your appointments as scheduled Take your immunizations and boosters as scheduled If your symptoms worsen call your PCP, if no PCP go to Urgent Care Center or Emergency Room Smoking is Dangerous to Your Health. Avoid second hand smoke Call the 24-hour hour crisis hotline for domestic abuse at Arnold Cramer MD, R3 Apr 19, 2017 13:54
--- NOTE | 2017-04-19 14:02 | HHI.DS ---
Discharge Summary Admission Date Apr 16, 2017 at 21:20 Discharge Date: Apr 19, 2017 Admitting Diagnosis symptomatic anemia, GI bleed (1) Symptomatic anemia Diagnosis: Principal Plan: Current hemoglobin and hematocrit is 8.9/28.5 respectively stable at this time. -Status post transfuse 2 units PRBC -Follow up CBC upon discharge ICD Codes: D64.9 - Anemia, unspecified Status: Acute (2) GI bleed Diagnosis: Principal Plan: -Hemoccult positive in the ED in the setting of colon cancer s/p hemicolectomy in 2013 -Suspect chronic GI bleed, will have to rule out colon cancer recurrence -GI consulted to evaluate for colonoscopy/EGD -EGD performed: Gastritis seen with biopsy taken -Colonoscopy performed: Poor prep, repeat plan for today 04/19/17 -Liquid diet -GoLYTELY -Holding Aspirin and Meloxicam ICD Codes: K92.2 - Gastrointestinal hemorrhage, unspecified Status: Chronic (3) Diabetes mellitus type 2 in nonobese Diagnosis: Secondary Plan: -Holding home metformin and glipizide -Low dose sliding scale insulin with accuchecks ICD Codes: E11.9 - Type 2 diabetes mellitus without complications Status: Chronic (4) Valvular heart disease Diagnosis: Secondary Plan: -ECHO from 11/2016 performed as outpatient shows EF of 62% with moderate aortic stenosis, mild MR, mild-moderate TR, and mild pulmonary hypertension -Pt had 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 Moran on 04/15/17 who scheduled him for a heart cath next week -Cardiology consulted, recommendations appreciated: Cleared for EGD and colonoscopy by cardiology. -Holding aspirin due to GI bleed ICD Codes: I38 - Endocarditis, valve unspecified Status: Chronic (5) Hypertension Diagnosis: Secondary Plan: -Currently normotensive -Not on any antihypertensives at home -Vasotec prn for SBP>170 or DBP > 100 or HR >65 ICD Codes: I10 - Hypertension Status: Acute (6) Hyperlipidemia Diagnosis: Secondary Plan: Holding atorvastatin due to complaints of leg cramps ICD Codes: E78.5 - Hyperlipidemia Status: Acute (7) BPH (benign prostatic hyperplasia) Diagnosis: Secondary Plan: -Continue home Tamsulosin 0.4 mg PO HS and Finasteride 5mg PO daily ICD Codes: N40.0 - Benign prostatic hyperplasia without lower urinary tract symptoms (8) FEN/DVT PPX/GI PPX/Nursing Orders Diagnosis: Secondary Plan: Fluids: By mouth intake Electrolytes: Will monitor and replace as needed Nutrition: Liquid Diet DVT Prophylaxis: Bilateral SCDs, Holding pharmacological prophylaxis due to GI bleed GI Prophylaxis: Protonix 40mg IV daily Constipation prophylaxis: Pericolace 1 tab PO BID PRN PRN Medications Tylenol 325 mg by mouth every 4 hours when necessary pain 1-10 or temperature greater than 100.4F Zofran 4 mg IV push every 6 hours when necessary nausea vomiting Vasotec 1.25 mg IV PRN SBP greater than 170 or DBP greater than 100 -Vitals Q4h -Monitor I's and O's -Fall precautions -automotive paint technician with 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 Disposition: Anticipate discharge today following colonoscopy/results Consultants GI, Cardiology Procedures Endoscopy, Colonoscopy x2 Brief History Mr Stacy is a 71-year-old male with a past medical history of diabetes, hyperlipidemia, colon cancer status post left hemicolectomy, hypertension, BPH, and left knee pain that presented to the [facility] ED after being sent here by Dr. Banegas who saw him in the [facility] clinic on April 12. At that time, patient complained of shortness of breath with exertion, fatigue and dizziness. Patient also reported having pressure-like sensation in his chest of one week duration. A CBC was ordered at that clinic visit which showed a hemoglobin of 6.2 and hematocrit of 22. Patient was called and asked to present to the ED for blood transfusion. Patient would need to be evaluated due to his history of colon cancer for which he had a left hemicolectomy on November 11, 2013. He denies any history of blood seen in his stools or dark tarry stools. he reported all his sxs of SOB, fatigue, etc started about a week prior to admission. CBC/BMP: 04/19/17 0645 04/19/17 0645 Significant Findings Laboratory Tests Test 04/16/17 19:45 04/17/17 06:01 04/18/17 06:26 04/19/17 06:45 Red Blood Count 3.81 MIL/MM3 (4.50-5.90) 4.07 MIL/MM3 (4.50-5.90) 4.08 MIL/MM3 (4.50-5.90) 4.33 MIL/MM3 (4.50-5.90) Hemoglobin 7.0 GM/DL (13.0-17.0) 8.4 GM/DL (13.0-17.0) 8.4 GM/DL (13.0-17.0) 8.9 GM/DL (13.0-17.0) Hematocrit 23.5 % (39.0-51.0) 27.0 % (39.0-51.0) 26.8 % (39.0-51.0) 28.5 % (39.0-51.0) Mean Corpuscular Volume 61.8 FL (80.0-100.0) 66.2 FL (80.0-100.0) 65.7 FL (80.0-100.0) 65.9 FL (80.0-100.0) Mean Corpuscular Hemoglobin 18.4 PG (27.0-34.0) 20.6 PG (27.0-34.0) 20.7 PG (27.0-34.0) 20.5 PG (27.0-34.0) Mean Corpuscular Hemoglobin Concent 29.8 % (32.0-36.0) 31.1 % (32.0-36.0) 31.4 % (32.0-36.0) 31.1 % (32.0-36.0) Red Cell Distribution Width 19.4 % (11.6-17.2) 22.5 % (11.6-17.2) 23.9 % (11.6-17.2) 24.2 % (11.6-17.2) Monocytes (%) (Auto) 10.7 % (0.0-8.0) Random Glucose 114 MG/DL (74-106) Estimat Glomerular Filtration Rate 65 ML/MIN (>89) 80 ML/MIN (>89) Blood Urea Nitrogen 19 MG/DL (7-18) Chloride Level 108 MEQ/L (98-107) PE at Discharge GENERAL: Well-nourished, well-developed patient. No acute distress. Sitting up at the side of the bed SKIN: Warm and dry. No rash. EYES: No scleral icterus. No injection or drainage. PERRLA. EOMI. HENT: Normocephalic. Atraumatic. MMM. NECK: No visible JVD or lymphadenopathy. CARDIOVASCULAR: Regular rate and rhythm. Harsh 4/6 systolic murmur RESPIRATORY: Regular rate and rhythm GASTROINTESTINAL: Abdomen nondistended. Nontender to palpation MUSCULOSKELETAL: Strength grossly WNL. BACK: Without obvious deformity. NEURO/PSYCH: Afocal. Awake, alert, and oriented x3. Hospital Course Patient was admitted on 04/16/17 for symptomatic anemia. He was found to have a positive Hemoccult on the ED. He has a history of colon cancer so this was concerning for the patient. He was transfused 2 units of blood and his Hemoglobin and Hematocrit became stable. GI was consulted for the GI bleed. Cardiology was consulted for clearance due to severe aortic stenosis. He was determined safe for EGD and colonoscopy. The colonoscopy had to be repeated due to poor prep. On the second attempt a pulp was seen and removed. It was determined that the patient was stable for discharge following the second colonoscopy on 04/19/17. Pt Condition on Discharge: Stable Discharge Disposition: Discharge Home Discharge Instructions DIET: Follow Instructions for: Heart Healthy Diet Activities you can perform: Regular-No Restrictions Follow up Referrals: Cardiology - 3 Weeks with Aria Moran MD Gastroenterology - 1 Week with Lulu Hernandez MD PCP Follow-up - 1 Week with Filiberto Alvarez MD Continued Medications: Atorvastatin (Atorvastatin) 40 Mg Tab 40 MG PO HS for Cholesterol Management, #90 TAB 1 Refill Finasteride (Proscar) 5 Mg Tab 5 MG PO DAILY for Manage Prostate Problems, #90 TAB 1 Refill Do not crush. Glipizide (Glipizide) 5 Mg Tab 5 MG PO BIDAC for Blood Sugar Management, #10 TAB 0 Refills Take 30 minutes before a meal Meloxicam (Meloxicam) 15 Mg Tab 15 MG PO DAILY for Arthritis Pain, #30 TAB 0 Refills Metformin (Metformin) 1,000 Mg Tab 1000 MG PO BID for Blood Sugar Management, #10 TAB 0 Refills With a meal Sildenafil (Viagra) 100 Mg Tab 100 MG PO DAILY PRN for ERECTILE DYSFUNCTION, #24 TAB 0 Refills Tamsulosin (Tamsulosin) 0.4 Mg Cap 0.4 MG PO HS for Manage Prostate Problems, #90 CAP 1 Refill [Accucheck Michelle] () 1 U BID, #1 U Glucometer - check blood sugars 2x daily [Lancets] () 1 UNITS .XX BID, #100 UNITS 3 Refills Onetouch Ultra Delica Lancets [Test Strips] () 1 UNITS .XX BID, #100 UNITS 5 Refills Onetouch Ultra Blue Test STrips Discontinued Medications: Aspirin (Aspirin) 81 Mg Chew 81 MG CHEW DAILY, TAB 0 Refills Methylprednisolone Dosepak (Medrol Dosepak) 4 Mg Dspk 4 MG PO DIRECTED, #1 DSPK 0 Refills Per Pharmacist direction Arnold Cramer MD, R3 Apr 19, 2017 14:02
[2017-04-19] MEDS ORDERED: BISACODYL EC 5 MG TABEC PO SCH (18:00)
[2017-04-22] MEDS ORDERED: TRIA40P I-ARTICULR (10:32)
[2017-04-23] MEDS ORDERED: NORC5TAB PO (13:47)
== END 2017-04-19 16:00 | disposition home or self-care (01) | DRG 812 ==
LOC: NEPE 18:26 → NEDA 21:20 → N04A 21:57
PROVIDERS: ADMIT Family Medicine; ATTEND Family Medicine
PROC: 30233N1 Transfusion of Nonautologous Red Blood Cells into Peripheral Vein, Percutaneous Approach (ICD-10-PCS; principal; 2017-04-17)
PROC: 0DB68ZX Excision of Stomach, Via Natural or Artificial Opening Endoscopic, Diagnostic (ICD-10-PCS; 2017-04-18)
PROC: 0DJD8ZZ Inspection of Lower Intestinal Tract, Via Natural or Artificial Opening Endoscopic (ICD-10-PCS; 2017-04-18 10:00)
PROC: 0DBN8ZX Excision of Sigmoid Colon, Via Natural or Artificial Opening Endoscopic, Diagnostic (ICD-10-PCS; 2017-04-19)
DX: D64.9 Anemia, unspecified (principal); I27.20 Pulmonary hypertension, unspecified; K92.2 Gastrointestinal hemorrhage, unspecified; I08.3 Combined rheumatic disorders of mitral, aortic and tricuspid valves; E11.9 Type 2 diabetes mellitus without complications; Z79.84 Long term (current) use of oral hypoglycemic drugs; D12.5 Benign neoplasm of sigmoid colon; Z85.038 Personal history of other malignant neoplasm of large intestine; I10 Essential (primary) hypertension; Z90.49 Acquired absence of other specified parts of digestive tract; K29.50 Unspecified chronic gastritis without bleeding; K64.8 Other hemorrhoids; K64.4 Residual hemorrhoidal skin tags; Z86.73 Personal history of transient ischemic attack (TIA), and cerebral infarction without residual deficits; E78.5 Hyperlipidemia, unspecified; N40.0 Benign prostatic hyperplasia without lower urinary tract symptoms; M54.5 Low back pain; G89.29 Other chronic pain
CPT/HCPCS: 36430; 74250; 80048; 80053; 82948; 85025; 85027; 85610; 85730; 86850; 86900; 86901; 86920; 88305; 88312; C9113; J1815; J2250; J2370; J7050; P9016

== ENCOUNTER 2018-05-05 18:33 | Inpatient (IN) ==
[2018-05-05] MEDS ORDERED: Pantoprazole Inj 40 MG Vial IV.PUSH ONE (20:28)
[2018-05-05] MEDS ORDERED: Pantoprazole Inj 80 MG in Sodium Chlor 0.9% Inj 100 ML IV.CONT SCH (21:00)
--- NOTE | 2018-05-05 21:08 | ED ---
HPI General Chief complaint: Medical Clearance Stated complaint: medical clearance Time Seen by Provider: 05/05/18 20:03 Source: patient and old records reviewed Mode of arrival: ambulatory Limitations: no limitations History of Present Illness HPI narrative: This patient has a history of anemia. He is in need of an aortic valve replacement. However, he cannot have the aortic valve replacement until he has been cleared by gastroenterology. He has a history of anemia and GI blood loss. He states that his hemoglobin has been followed as an outpatient and continues to drop. He was instructed by his principal administrative clerk to come here this evening because of a hemoglobin of about 7. He does report some associated chest pain and shortness of breath. He has a history of colon cancer and is status post a partial colectomy. MD complaint: Chief complaint is anemia. Onset (ago): day(s) Severity: mild Pain Consistency: constant Associated symptoms: Reports chest pain and shortness of breath Treatments prior to arrival: Reports none Related Data Home Medications Medication Instructions Recorded Confirmed atorvastatin 40 mg PO DAILY 03/24/18 05/05/18 glipizide 10 mg PO DAILY 03/24/18 05/05/18 lisinopril 2.5 mg PO BID 03/24/18 05/05/18 Previous Rx's Medication Instructions Recorded metformin 1,000 mg PO BID #0 tab 03/25/18 Allergies Allergy/AdvReac Type Severity Reaction Status Date / Time No Known Allergies Allergy Verified 05/05/18 19:34 Review of Systems ROS: all other systems reviewed are negative [facility] Medical History Medical History Anemia (Acute) Aortic stenosis (Acute) CVA (cerebral vascular accident) (Acute) Colon cancer (Acute) Diabetes (Acute) HLD (hyperlipidemia) (Acute) HTN (hypertension) (Acute) Mitral regurgitation (Acute) SOB (shortness of breath) (Acute) Sinus infection (Acute) Social History Social History Second Hand Smoke Exposure: No Smoking Status: Never smoker How Often Do You Have a Drink Containing Alcohol: Monthly or less Recent Travel in [facility] within the Last 8 Weeks: No Recent Out of Country Travel within the Last 8 Weeks: No Immunization History Tetanus Immunization: Unsure Exam Const General: cooperative, healthy appearing and comfortable Orientation: alert, awake and oriented x3 HENMT Head: normal to inspection, normocephalic and atraumatic Eyes General: appearance normal, both eyes and all related structures Conjunctivae: conjunctivae normal Sclera: sclerae normal EOM: EOM intact bilaterally Neck Neck: normal visual inspection and full ROM Chest Chest: normal inspection of the chest Resp Effort & Inspection: normal respiratory effort and able to speak in complete sentences Auscultation: clear to auscultation bilaterally Cardio Rate: regular rate Rhythm: regular rhythm Heart Sounds: murmur systolic GI Inspection: normal to inspection Palpation: soft Rectal Exam: visual inspection normal and normal sphincter tone Back/Spine/Pelvis Cervical Spine: cervical ROM normal Thoracic/Lumbar Spine: thoraco-lumbar ROM normal Skin General: no rashes or lesions noted, turgor normal and dry skin Neuro General: alert, awake, oriented x3, moves all extremities and CN's II-XI intact bilaterally Extrem General: normal to inspection, full ROM and no pedal edema Psych Appearance: grossly normal Mental Status: mental status grossly normal Speech and Movement: speech and movement normal Mood: congruent mood Affect: normal affect Attitude: cooperative Thought Process: normal Thought Content: normal Judgment: judgment good Procedures Hemaprompt Stool Procedural Steps Taken: controls appropriately positive and negative Hemaprompt Stool Result: positive Course Consultations Consultation #1: Dr. Tate Time: 22:24 Initial Documented Vital Signs Temperature 98.0 F 05/05/18 19:23 Pulse Rate 71 05/05/18 19:23 Respiratory Rate 17 05/05/18 19:23 Blood Pressure 137/63 05/05/18 19:23 Pulse Oximetry 97 05/05/18 19:23 Last Documented Vital Signs Temperature 98.0 F 05/05/18 19:23 Pulse Rate 69 05/05/18 19:57 Respiratory Rate 16 05/05/18 19:57 Blood Pressure 150/70 H 05/05/18 19:57 Pulse Oximetry 100 05/05/18 21:05 Medical Decision Making [facility] Narrative Medical decision making narrative: This patient presents with anemia. This was diagnosed as an outpatient. His rectal exam shows dark stool which is Hemoccult positive. He also has aortic valve stenosis and is in need of an aortic valve replacement. He cannot have his aortic valve replaced until he is stable from an anemia standpoint and has been cleared by gastroenterology. Medical Screen Exam Complete: Yes Emergency Medical Condition: Yes Differential Diagnosis Differential Diagnosis: Differential diagnosis of dyspnea includes but is not limited to congestive heart failure, pneumonia, wheezing, pneumothorax, pulmonary embolism Medical Records Medical records reviewed: Yes I reviewed the patient's medical records. Patient was admitted to the hospital about a year ago with the same thing. He required blood transfusion at that time. Lab Data Lab results reviewed: Yes I reviewed the patient's lab results. Result diagrams: 05/05/18 20:40 05/05/18 20:40 Lab Results 05/05/18 05/05/18 05/05/18 Range/Units 20:40 20:40 20:40 WBC 4.4 (4.0-11.0) th/mm3 RBC 3.07 L (4.50-5.90) mil/mm3 Hgb 7.5 L (13.0-17.0) gm/dL Hct 23.7 L (39.0-51.0) % MCV 77.2 L (80.0-100.0) fL MCH 24.4 L (27.0-34.0) pg MCHC 31.6 L (32.0-36.0) % RDW 20.4 H (11.6-17.2) % Plt Count 351 (150-450) th/mm3 MPV 8.1 (7.0-11.0) fL Neut % (Auto) 53.4 (16.0-70.0) % Lymph % (Auto) 34.0 (9.0-44.0) % [place] % (Auto) 10.9 H (0.0-8.0) % Eos % (Auto) 0.9 (0.0-4.0) % Baso % (Auto) 0.8 (0.0-2.0) % Neut # (Auto) 2.4 (1.8-7.7) th/mm3 Lymph # (Auto) 1.5 (1.0-4.8) th/mm3 [place] # (Auto) 0.5 (0.0-0.9) th/mm3 Eos # (Auto) 0.0 (0.0-0.4) th/mm3 Baso # (Auto) 0.0 (0.0-0.2) th/mm3 WBC Differential . Differential Comment Auto diff final PT 10.3 (9.8-11.6) sec INR 1.0 Ratio APTT 25.0 (24.3-30.1) sec Sodium 142 (136-145) meq/L Potassium 4.1 (3.5-5.1) meq/L Chloride 108 H (98-107) meq/L Carbon Dioxide 25.6 (21.0-32.0) meq/L Anion Gap 8 (5-15) meq/L BUN 20 H (7-18) mg/dL Creatinine 1.12 (0.60-1.30) mg/dL Estimated GFR 65 L (>89) mL/min Random Glucose 109 H (74-106) mg/dL Calcium 8.9 (8.5-10.1) mg/dL Total Bilirubin 0.4 (0.2-1.0) mg/dL AST 28 (15-37) U/L ALT 35 (12-78) U/L Alkaline Phosphatase 57 (45-117) U/L Troponin I Less than 0.02 L (0.02-0.05) ng/mL Total Protein 7.0 (6.4-8.2) g/dL Albumin 3.9 (3.4-5.0) g/dL Blood Type Antibody Screen MTS Gel Crossmatch Bld Prod Order Comment 05/05/18 Range/Units 20:40 WBC (4.0-11.0) th/mm3 RBC (4.50-5.90) mil/mm3 Hgb (13.0-17.0) gm/dL Hct (39.0-51.0) % MCV (80.0-100.0) fL MCH (27.0-34.0) pg MCHC (32.0-36.0) % RDW (11.6-17.2) % Plt Count (150-450) th/mm3 MPV (7.0-11.0) fL Neut % (Auto) (16.0-70.0) % Lymph % (Auto) (9.0-44.0) % [place] % (Auto) (0.0-8.0) % Eos % (Auto) (0.0-4.0) % Baso % (Auto) (0.0-2.0) % Neut # (Auto) (1.8-7.7) th/mm3 Lymph # (Auto) (1.0-4.8) th/mm3 [place] # (Auto) (0.0-0.9) th/mm3 Eos # (Auto) (0.0-0.4) th/mm3 Baso # (Auto) (0.0-0.2) th/mm3 WBC Differential Differential Comment PT (9.8-11.6) sec INR Ratio APTT (24.3-30.1) sec Sodium (136-145) meq/L Potassium (3.5-5.1) meq/L Chloride (98-107) meq/L Carbon Dioxide (21.0-32.0) meq/L Anion Gap (5-15) meq/L BUN (7-18) mg/dL Creatinine (0.60-1.30) mg/dL Estimated GFR (>89) mL/min Random Glucose (74-106) mg/dL Calcium (8.5-10.1) mg/dL Total Bilirubin (0.2-1.0) mg/dL AST (15-37) U/L ALT (12-78) U/L Alkaline Phosphatase (45-117) U/L Troponin I (0.02-0.05) ng/mL Total Protein (6.4-8.2) g/dL Albumin (3.4-5.0) g/dL Blood Type A Positive Antibody Screen Negative MTS Gel Crossmatch See Detail Bld Prod Order Comment ECG Data EKG Prior to Arrival: No Attestation: I personally reviewed and interpreted this ECG as follows: (EKG shows a sinus rhythm with a rate 66. He has a right bundle branch block. His EKG is unchanged from previous.) Prior ECG tracings: available for review Discharge Plan Physicians Team ED Provider: Jessica Garcia Primary Care Provider: UNKNOWN, Rxs /Orders / Referrals /Forms Prescriptions: No Action atorvastatin 40 mg Tablet 40 mg PO DAILY RF: 0 lisinopril 2.5 mg Tablet 2.5 mg PO BID RF: 0 glipizide 5 mg Tablet 10 mg PO DAILY RF: 0 metformin 1,000 mg Tablet 1,000 mg PO BID Qty: 0 RF: 0 Discharge Interventions Interventions: Vital Signs Last Done: 05/05/18 19:57 Status ED Status: With Doctor
[2018-05-05 21:21] LABS: Baso % (Auto) 0.8 % (0.0-2.0); Eos % (Auto) 0.9 % (0.0-4.0); Hematocrit 23.7 % (39.0-51.0); Hemoglobin 7.5 gm/dL (13.0-17.0); Lymph # (Auto) 1.5 th/mm3 (1.0-4.8); Mean Corpuscular HGB Conc 31.6 % (32.0-36.0); Mean Corpuscular Hemoglobin 24.4 pg (27.0-34.0); Mean Corpuscular Volume 77.2 fL (80.0-100.0); Mean Platelet Volume 8.1 fL (7.0-11.0); Mono # (Auto) 0.5 th/mm3 (0.0-0.9); Mono % (Auto) 10.9 % (0.0-8.0); Neut # (Auto) 2.4 th/mm3 (1.8-7.7); Neut % (Auto) 53.4 % (16.0-70.0); Platelet Count 351 th/mm3 (150-450); Red Blood Count 3.07 mil/mm3 (4.50-5.90); Red Cell Distribution Width 20.4 % (11.6-17.2); White Blood Count 4.4 th/mm3 (4.0-11.0)
[2018-05-05 21:26] LABS: Prothrombin Time 10.3 sec (9.8-11.6)
[2018-05-05 21:44] LABS: Alanine Aminotransferase 35 U/L (12-78); Alkaline Phosphatase 57 U/L (45-117)
[2018-05-05 22:01] LABS: Albumin 3.9 g/dL (3.4-5.0); Anion Gap 8 meq/L (5-15); Aspartate Aminotransferase 28 U/L (15-37); Blood Urea Nitrogen 20 mg/dL (7-18); Calcium 8.9 mg/dL (8.5-10.1); Carbon Dioxide 25.6 meq/L (21.0-32.0); Chloride 108 meq/L (98-107); Glomerular Filtration Rate 65 mL/min (>89); Glucose,Random 109 mg/dL (74-106); Potassium 4.1 meq/L (3.5-5.1); Sodium 142 meq/L (136-145)
--- NOTE | 2018-05-05 22:38 | P.HPFP ---
History of Present Illness Primary Care Physician: UNKNOWN Chief Complaint: low hgb History of Present Illness: Mr. Stacy is a 80-year-old male with a past medical history of colon cancer presenting to the ED due to low hemoglobin. He states that over the past year he has had issues with low hemoglobin requiring transfusions. Recently he started feeling low on energy and visited his security operations center operator, Dr. Moran, who attributed it to an issue with his aortic valve requiring replacement. He is due for aortic valve replacement next month. He recently visited his PCP, Dr. Alvarez, who found a hemoglobin of 9.3 on blood work done on 04/21. He he repeated the CBC which showed a hemoglobin of 7.7. He went to the security operations center operator just today and was sent to the lab where his hemoglobin was found to be 7.2. Advised him to go to the ED. He states that he has been feeling short of breath. At night he has to sleep on 3 pillows. No sick dizziness/ lightheadedness. He does have black, loose stools. No bright red blood in his stool. He does not take any blood thinners, but does take a baby aspirin daily. He states that he has recently had issues with daily nausea and spitting up nonbloody mucousy material after eating with associated abdominal pain. This however, has resolved 4 days ago upon starting an OTC PPI. - Diagnosis (1) Iron deficiency anemia (2) Diabetes mellitus (3) Hypertension (4) Hyperlipemia (5) Nutrition, metabolism, and development symptoms (6) DVT prophylaxis Review of Systems Constitutional: Denies chills, Denies fever(s) Eyes: Denies blurry vision Ears, Nose, Mouth, and Throat: Denies dizziness Cardiovascular: Reports shortness of breath when lying down, Denies chest pain Respiratory: Reports shortness of breath, Reports shortness of breath with activity Gastrointestinal: Reports black, tarry stools, Denies abdominal pain, Denies vomiting Genitourinary: Denies blood in urine, Denies difficulty urinating Musculoskeletal: Reports numbness (in fingers) Skin/Breast: Denies rash Neurologic: Denies frequent falls Endocrine: Reports cold intolerance Hematologic/Lymphatic: Denies easy bruising PMFSH - History History Provided By: Patient - Medical History Medical History: Medical History (Last Reviewed 05/05/18 @ 21:04 by Jessica Garcia) Anemia Aortic stenosis CVA (cerebral vascular accident) Colon cancer Diabetes HLD (hyperlipidemia) HTN (hypertension) Mitral regurgitation SOB (shortness of breath) Sinus infection - Tobacco History Second Hand Smoke Exposure: No Smoking Status: Never smoker - Alcohol History How Often Do You Have a Drink Containing Alcohol: Monthly or less - Travel History Recent Travel in the [place] Within the Last 8 Weeks: No Recent Travel Out of the Country Within the Last 8 Weeks: No - Immunization History Tetanus Immunization: Unsure Medications and Allergies Active Medications: Active Medications Pantoprazole Sodium 80 mg/ (Sodium Chloride) 100 mls @ 10 mls/hr IV.CONT CONT REX Last Admin: 05/05/18 21:22 Dose: 10 mls/hr Sodium Chloride (Ns Flush) 2 ml IV.FLUSH PRN PRN PRN Reason: FLUSH AFTER USING IV ACCESS Allergies Allergy/AdvReac Type Severity Reaction Status Date / Time No Known Allergies Allergy Verified 05/05/18 19:34 Home Medications Medication Instructions Recorded Confirmed Type atorvastatin 40 mg PO DAILY 03/24/18 05/05/18 History glipizide 10 mg PO DAILY 03/24/18 05/05/18 History lisinopril 2.5 mg PO BID 03/24/18 05/05/18 History Exam Vital signs: Vital Signs 05/05/18 19:23 05/05/18 19:57 05/05/18 20:33 Temperature 98.0 F Pulse Rate 71 69 Respiratory Rate 17 16 Blood Pressure 137/63 150/70 H Pulse Oximetry 97 100 99 05/05/18 21:05 Temperature Pulse Rate Respiratory Rate Blood Pressure Pulse Oximetry 100 Intake & Output 05/05/18 05/05/18 05/06/18 06:59 18:59 06:59 Weight 76.657 kg Narrative: GENERAL: Elderly male laying in bed, in no acute distress SKIN: Warm and dry. HEAD: Atraumatic. Normocephalic. EYES: Pupils equal and round. No scleral icterus. No injection or drainage. Pale sclera. ENT: No nasal bleeding or discharge. Mucous membranes pink and moist. NECK: Trachea midline. No JVD. CARDIOVASCULAR: Regular rate and rhythm. 3/6 systolic murmur best heard at left upper sternal border RESPIRATORY: No accessory muscle use. Clear to auscultation. Breath sounds equal bilaterally. GASTROINTESTINAL: Abdomen soft, non-tender, nondistended. Hepatic and splenic margins not palpable. MUSCULOSKELETAL: Extremities without clubbing, cyanosis, or edema. No obvious deformities. NEUROLOGICAL: Awake and alert. No obvious cranial nerve deficits. Motor grossly within normal limits. Five out of 5 muscle strength in the arms and legs. Normal speech. PSYCHIATRIC: Appropriate mood and affect; insight and judgment normal. Results - Labs Result diagrams: 05/05/18 20:40 05/05/18 20:40 Abnormal lab results 05/05/18 05/05/18 05/05/18 Range/Units 20:40 20:40 20:40 RBC 3.07 L (4.50-5.90) mil/mm3 Hgb 7.5 L (13.0-17.0) gm/dL Hct 23.7 L (39.0-51.0) % MCV 77.2 L (80.0-100.0) fL MCH 24.4 L (27.0-34.0) pg MCHC 31.6 L (32.0-36.0) % RDW 20.4 H (11.6-17.2) % [place] % (Auto) 10.9 H (0.0-8.0) % Chloride 108 H (98-107) meq/L BUN 20 H (7-18) mg/dL Estimated GFR 65 L (>89) mL/min Random Glucose 109 H (74-106) mg/dL Troponin I Less than 0.02 L (0.02-0.05) ng/mL MTS Gel Crossmatch See Detail Short CBC 05/05/18 Range/Units 20:40 WBC 4.4 (4.0-11.0) th/mm3 Hgb 7.5 L (13.0-17.0) gm/dL Hct 23.7 L (39.0-51.0) % Plt Count 351 (150-450) th/mm3 BMP 05/05/18 20:40 Sodium 142 Potassium 4.1 Chloride 108 H Carbon Dioxide 25.6 BUN 20 H Creatinine 1.12 Calcium 8.9 Cardiac Enzymes 05/05/18 Range/Units 20:40 Troponin I Less than 0.02 L (0.02-0.05) ng/mL Liver Function 05/05/18 Range/Units 20:40 Total Bilirubin 0.4 (0.2-1.0) mg/dL AST 28 (15-37) U/L ALT 35 (12-78) U/L Alkaline Phosphatase 57 (45-117) U/L Albumin 3.9 (3.4-5.0) g/dL Caprini VTE Risk Assessment Caprini VTE Risk Assessment: Moderate/High Risk (score >= 2) Caprini Risk Assessment Model: Point Value = 1 Point Value = 2 Point Value = 3 Point Value = 5 Age 41-60 Minor surgery BMI > 25 kg/m2 Swollen legs Varicose veins or History of unexplained or recurrent spontaneous Oral contraceptives or hormone replacement Sepsis (< 1 month) Serious lung disease, including pneumonia (< 1 month) Abnormal pulmonary function Acute myocardial infarction Congestive heart failure (< 1 month) History of inflammatory bowel disease Medical patient at bed rest Age 61-74 Arthroscopic surgery Major open surgery (> 45 min) Laparoscopic surgery (> 45 min) Malignancy Confined to bed (> 72 hours) Immobilizing plaster cast Central venous access Age >= 75 History of VTE Family history of VTE Factor V Leiden Prothrombin [id number] Lupus anticoagulant Anticardiolipin antibodies Elevated serum homocysteine Heparin-induced thrombocytopenia Other congenital or acquired thrombophilia Stroke (< 1 month) Elective arthroplasty Hip, pelvis, or leg fracture Acute spinal cord injury (< 1 month) Prophylaxis Regimen: Total Risk Factor Score Risk Level Prophylaxis Regimen 0-1 Low Early ambulation 2 Moderate Order ONE of the following: *Sequential Compression Device (SCD) *Heparin 5000 units SQ BID 3-4 Higher Order ONE of the following medications: *Heparin 5000 units SQ TID *Enoxaparin/Lovenox 40 mg SQ daily (WT < 150 kg, CrCl > 30 mL/min) *Enoxaparin/Lovenox 30 mg SQ daily (WT < 150 kg, CrCl > 10-29 mL/min) *Enoxaparin/Lovenox 30 mg SQ BID (WT < 150 kg, CrCl > 30 mL/min) AND/OR *Sequential Compression Device (SCD) 5 or more Highest Order ONE of the following medications: *Heparin 5000 units SQ TID (Preferred with Epidurals) *Enoxaparin/Lovenox 40 mg SQ daily (WT < 150 kg, CrCl > 30 mL/min) *Enoxaparin/Lovenox 30 mg SQ daily (WT < 150 kg, CrCl > 10-29 mL/min) *Enoxaparin/Lovenox 30 mg SQ BID (WT < 150 kg, CrCl > 30 mL/min) AND *Sequential Compression Device (SCD) Assessment and Plan - Assessment (1) Iron deficiency anemia Code(s): D50.9 - Iron deficiency anemia, unspecified Status: Acute Plan: Patient with history of colon cancer with black, loose stools and a hemoglobin of 7.5 on admission. Hemoccult positive in the ED. May be due to gastric ulcer versus duodenal ulcer versus malignancy versus hemorrhoids -Stat type and screen, transfuse 2 units of PRBCs now -Repeat H&H after transfusion -Consult GI, appreciate recommendations -Placed on liquid diet, may start prep for colonoscopy tomorrow -Pantoprazole 80 mg IV bolus given in ED, continue every 2 hours -Monitor I's and O's -Repeat CBC in a.m. (2) Diabetes mellitus Code(s): E11.9 - Type 2 diabetes mellitus without complications Status: Chronic Plan: Hold at home metformin and glipizide -NovoLog low-dose sliding scale insulin -Bedside Accu-Cheks -12Hypoglycemia protocol (3) Hypertension Code(s): I10 - Essential (primary) hypertension Status: Chronic Plan: Continue at home lisinopril 2.5 mg p.o. twice daily (4) Hyperlipemia Code(s): E78.5 - Hyperlipidemia, unspecified Status: Chronic Plan: Continue at home atorvastatin 40 mg p.o. daily (5) Nutrition, metabolism, and development symptoms Code(s): R63.8 - Other symptoms and signs concerning food and fluid intake Status: Acute Plan: Fluids: NS @ 120ml/hr Electrolytes: monitor and replete as needed Nutrition: liquid diet (6) DVT prophylaxis Status: Acute Plan: DVT Prophylaxis: Early ambulation. bilateral SCDs - Assessment and Plan Discussed Condition With: Dr. Garcia Discharge Planning: Pending clinical course (2) Diabetes mellitus Qualifiers: Diabetes mellitus type: type 2 Diabetes mellitus usp insulin use: without meterman use Diabetes mellitus complication status: with unspecified complications Qualified Code(s): E11.8 - Type 2 diabetes mellitus with unspecified complications
[2018-05-05] MEDS ORDERED: Acetaminophen 325 MG Tablet PO PRN (22:47)
[2018-05-05] MEDS: Sod Chloride 0.9% Inj 1,000 ML IV.CONT SCH (23:53)
[2018-05-06] MEDS ORDERED: Dextrose 50% in Water 50 ML Vial IV.PUSH PRN (00:51)
[2018-05-06] MEDS: Pantoprazole Inj 80 MG in Sodium Chlor 0.9% Inj 100 ML IV.CONT SCH ×2 (08:17→17:23)
[2018-05-06] MEDS: Sod Chloride 0.9% Inj 1,000 ML IV.CONT SCH ×2 (08:20→17:24)
[2018-05-06] MEDS: Insulin NovoLOG Aspart Correctional Sugar Inj SQ SCH ×4 (09:16→20:56)
[2018-05-06] MEDS: Lisinopril 5 MG Tablet PO SCH ×2 (09:31→20:55)
--- NOTE | 2018-05-06 09:47 | P.PNFP ---
Subjective Interval history: Patient is a 72-year-old man with a history of diabetes, hypertension, hyperlipidemia, stage I colon cancer status post resection, history of one previous GI bleed about a year ago and iron deficiency anemia who presented with a likely GI bleed and symptomatic anemia. Patient has received 2 units of PRBC. Since receiving PRBC, patient reports feeling less fatigue, less dyspnea. Discussed plan of care with patient. Patient reports that he is schedule for open heart surgery in the near future to get both a CABG and AVR. <Nitesh Fernando - 05/06/18 11:02> Results - Labs Result diagrams: 05/06/18 13:04 05/05/18 20:40 <Rani Reese - 05/06/18 13:49> Abnormal lab results 05/05/18 05/05/18 05/05/18 Range/Units 20:40 20:40 20:40 RBC 3.07 L (4.50-5.90) mil/mm3 Hgb 7.5 L (13.0-17.0) gm/dL Hct 23.7 L (39.0-51.0) % MCV 77.2 L (80.0-100.0) fL MCH 24.4 L (27.0-34.0) pg MCHC 31.6 L (32.0-36.0) % RDW 20.4 H (11.6-17.2) % [place] % (Auto) 10.9 H (0.0-8.0) % Chloride 108 H (98-107) meq/L BUN 20 H (7-18) mg/dL Estimated GFR 65 L (>89) mL/min Random Glucose 109 H (74-106) mg/dL Troponin I Less than 0.02 L (0.02-0.05) ng/mL MTS Gel Crossmatch See Detail 05/06/18 Range/Units 13:04 RBC 3.43 L (4.50-5.90) mil/mm3 Hgb 8.9 L (13.0-17.0) gm/dL Hct 27.4 L (39.0-51.0) % MCV 79.9 L (80.0-100.0) fL MCH 25.8 L (27.0-34.0) pg MCHC (32.0-36.0) % RDW 20.1 H (11.6-17.2) % [place] % (Auto) 12.0 H (0.0-8.0) % Chloride (98-107) meq/L BUN (7-18) mg/dL Estimated GFR (>89) mL/min Random Glucose (74-106) mg/dL Troponin I (0.02-0.05) ng/mL MTS Gel Crossmatch Short CBC 05/05/18 05/06/18 Range/Units 20:40 13:04 WBC 4.4 5.1 (4.0-11.0) th/mm3 Hgb 7.5 L 8.9 L (13.0-17.0) gm/dL Hct 23.7 L 27.4 L (39.0-51.0) % Plt Count 351 283 (150-450) th/mm3 BMP 05/05/18 20:40 Sodium 142 Potassium 4.1 Chloride 108 H Carbon Dioxide 25.6 BUN 20 H Creatinine 1.12 Calcium 8.9 Cardiac Enzymes 05/05/18 Range/Units 20:40 Troponin I Less than 0.02 L (0.02-0.05) ng/mL Liver Function 05/05/18 Range/Units 20:40 Total Bilirubin 0.4 (0.2-1.0) mg/dL AST 28 (15-37) U/L ALT 35 (12-78) U/L Alkaline Phosphatase 57 (45-117) U/L Albumin 3.9 (3.4-5.0) g/dL <Rani Reese Jake - 05/06/18 13:49> Abnormal lab results 05/05/18 05/05/18 05/05/18 Range/Units 20:40 20:40 20:40 RBC 3.07 L (4.50-5.90) mil/mm3 Hgb 7.5 L (13.0-17.0) gm/dL Hct 23.7 L (39.0-51.0) % MCV 77.2 L (80.0-100.0) fL MCH 24.4 L (27.0-34.0) pg MCHC 31.6 L (32.0-36.0) % RDW 20.4 H (11.6-17.2) % [place] % (Auto) 10.9 H (0.0-8.0) % Chloride 108 H (98-107) meq/L BUN 20 H (7-18) mg/dL Estimated GFR 65 L (>89) mL/min Random Glucose 109 H (74-106) mg/dL Troponin I Less than 0.02 L (0.02-0.05) ng/mL MTS Gel Crossmatch See Detail Short CBC 05/05/18 Range/Units 20:40 WBC 4.4 (4.0-11.0) th/mm3 Hgb 7.5 L (13.0-17.0) gm/dL Hct 23.7 L (39.0-51.0) % Plt Count 351 (150-450) th/mm3 BMP 05/05/18 20:40 Sodium 142 Potassium 4.1 Chloride 108 H Carbon Dioxide 25.6 BUN 20 H Creatinine 1.12 Calcium 8.9 Cardiac Enzymes 05/05/18 Range/Units 20:40 Troponin I Less than 0.02 L (0.02-0.05) ng/mL Liver Function 05/05/18 Range/Units 20:40 Total Bilirubin 0.4 (0.2-1.0) mg/dL AST 28 (15-37) U/L ALT 35 (12-78) U/L Alkaline Phosphatase 57 (45-117) U/L Albumin 3.9 (3.4-5.0) g/dL <Nitesh Fernando - 05/06/18 09:47> Physical Exam Vital signs: Vital Signs 05/05/18 19:23 05/05/18 19:57 05/05/18 20:33 Temperature 98.0 F Pulse Rate 71 69 Respiratory Rate 17 16 Blood Pressure 137/63 150/70 H Pulse Oximetry 97 100 99 05/05/18 21:05 05/06/18 00:00 05/06/18 01:35 Temperature 98.1 F 98.1 F Pulse Rate 63 60 Respiratory Rate 19 16 Blood Pressure 129/60 120/58 L Pulse Oximetry 100 98 98 05/06/18 01:55 05/06/18 03:31 05/06/18 04:48 Temperature 98.3 F 97.9 F 98.3 F Pulse Rate 60 65 60 Respiratory Rate 16 19 16 Blood Pressure 117/58 L 117/54 L 94/49 L Pulse Oximetry 98 99 98 05/06/18 05:09 05/06/18 08:00 05/06/18 11:45 Temperature 98.0 F 97.8 F Pulse Rate 60 60 63 Respiratory Rate 16 18 18 Blood Pressure 106/53 L 132/57 L 132/61 Pulse Oximetry 97 98 97 Intake & Output 05/05/18 05/06/18 05/06/18 18:59 06:59 18:59 Intake Total 500 / 500 1000 / 1000 Balance 500 / 500 1000 / 1000 Weight 82 kg Intake: IV 100 / 100 1000 / 1000 Protonix Inj 80 MG In NS Inj 100 / 100 100 ML @ 10 mls/hr IV.CONT CONT [facility] Rx#:[id number] NS Inj 1,000 ML @ 120 mls/hr IV 1000 / 1000 .CONT .Q8H20M [facility] Rx#:[id number] Intake (Blood Product) Amt 400 / 400 Rbc As-3 Leukoreduced Unit 400 / 400 [id number] Rbc As-3 Leukoreduced Unit 0 / 0 [id number] Other: Weight On Admission 160 kg <Rani Reese - 05/06/18 13:49> Vital Signs 05/05/18 19:23 05/05/18 19:57 05/05/18 20:33 Temperature 98.0 F Pulse Rate 71 69 Respiratory Rate 17 16 Blood Pressure 137/63 150/70 H Pulse Oximetry 97 100 99 05/05/18 21:05 05/06/18 00:00 05/06/18 01:35 Temperature 98.1 F 98.1 F Pulse Rate 63 60 Respiratory Rate 19 16 Blood Pressure 129/60 120/58 L Pulse Oximetry 100 98 98 05/06/18 01:55 05/06/18 03:31 05/06/18 04:48 Temperature 98.3 F 97.9 F 98.3 F Pulse Rate 60 65 60 Respiratory Rate 16 19 16 Blood Pressure 117/58 L 117/54 L 94/49 L Pulse Oximetry 98 99 98 05/06/18 05:09 05/06/18 08:00 Temperature 98.0 F 97.8 F Pulse Rate 60 60 Respiratory Rate 16 18 Blood Pressure 106/53 L 132/57 L Pulse Oximetry 97 98 Intake & Output 05/05/18 05/06/18 05/06/18 18:59 06:59 18:59 Intake Total 500 / 500 1000 / 1000 Balance 500 / 500 1000 / 1000 Weight 82 kg Intake: IV 100 / 100 1000 / 1000 Protonix Inj 80 MG In NS Inj 100 / 100 100 ML @ 10 mls/hr IV.CONT CONT [facility] Rx#:[id number] NS Inj 1,000 ML @ 120 mls/hr IV 1000 / 1000 .CONT .Q8H20M [facility] Rx#:[id number] Intake (Blood Product) Amt 400 / 400 Rbc As-3 Leukoreduced Unit 400 / 400 [id number] Rbc As-3 Leukoreduced Unit 0 / 0 [id number] Other: Weight On Admission 160 kg <Nitesh Fernando - 05/06/18 09:47> Narrative: GENERAL: Elderly male laying in bed, in no acute distress SKIN: Warm and dry. HEAD: Atraumatic. Normocephalic. EYES: Pupils equal and round. No scleral icterus. No injection or drainage. ENT: No nasal bleeding or discharge. Mucous membranes pink and moist. NECK: Trachea midline. No JVD. CARDIOVASCULAR: Regular rate and rhythm. 3/6 systolic murmur best heard at left upper sternal border RESPIRATORY: No accessory muscle use. Clear to auscultation. Breath sounds equal bilaterally. GASTROINTESTINAL: Abdomen soft, non-tender, nondistended. Hepatic and splenic margins not palpable. MUSCULOSKELETAL: Extremities without clubbing, cyanosis, or edema. No obvious deformities. NEUROLOGICAL: Awake and alert. No obvious cranial nerve deficits. Motor grossly within normal limits. Five out of 5 muscle strength in the arms and legs. Normal speech. PSYCHIATRIC: Appropriate mood and affect; insight and judgment normal. <Nitesh Fernando - 05/06/18 09:47> Assessment and Plan - Assessment (1) Iron deficiency anemia Code(s): D50.9 - Iron deficiency anemia, unspecified Status: Acute (2) Diabetes mellitus Code(s): E11.9 - Type 2 diabetes mellitus without complications Status: Chronic (3) Hypertension Code(s): I10 - Essential (primary) hypertension Status: Chronic (4) Hyperlipemia Code(s): E78.5 - Hyperlipidemia, unspecified Status: Chronic (5) Nutrition, metabolism, and development symptoms Code(s): R63.8 - Other symptoms and signs concerning food and fluid intake Status: Acute (6) DVT prophylaxis Status: Acute <Rani Reese - 05/06/18 13:49> (1) Iron deficiency anemia Code(s): D50.9 - Iron deficiency anemia, unspecified Status: Acute Plan: Patient with history of GIB and iron def anemia p/w black, loose stools and a hemoglobin of 7.5 on admission. Hemoccult positive in the ED. May be due to gastric ulcer versus duodenal ulcer versus AVM versus malignancy. -Patient has been transfused 2 units of PRBCs -Repeat H&H after transfusion is pending -Consult GI, appreciate recommendations -Placed on liquid diet -Pantoprazole 80 mg IV continuous q10h -Monitor I's and O's -Repeat CBC q a.m. (2) Diabetes mellitus Code(s): E11.9 - Type 2 diabetes mellitus without complications Status: Chronic Plan: Hold at home metformin and glipizide -NovoLog low-dose sliding scale insulin -Bedside Accu-Cheks -Hypoglycemia protocol (3) Hypertension Code(s): I10 - Essential (primary) hypertension Status: Chronic Plan: Continue at home lisinopril 2.5 mg p.o. twice daily (4) Hyperlipemia Code(s): E78.5 - Hyperlipidemia, unspecified Status: Chronic Plan: Continue at home atorvastatin 40 mg p.o. daily (5) Nutrition, metabolism, and development symptoms Code(s): R63.8 - Other symptoms and signs concerning food and fluid intake Status: Acute Plan: Fluids: NS @ 120ml/hr Electrolytes: monitor and replete as needed Nutrition: liquid diet (6) DVT prophylaxis Status: Acute Plan: DVT Prophylaxis: Early ambulation. bilateral SCDs <Nitesh Fernando - 05/06/18 11:01> - Assessment and Plan Patient is a 72-year-old man with a history of diabetes, hypertension, hyperlipidemia, stage I colon cancer status post resection, history of one previous GI bleed about a year ago and iron deficiency anemia who presented with a likely GI bleed and symptomatic anemia. Patient received 2 units of PRBC , which helped his symptoms. Discussed plan of care with patient, which is to await GI recommendations at this time. <Nitesh Fernando - 05/06/18 09:47> Discussed Condition With: Dr. Reese <Nitesh Fernando - 05/06/18 09:47> - Attending Attestation The exam, history, and the medical decision-making described in the above note were completed with the assistance of the resident physician. I reviewed and agree with the findings presented. I attest that I had a [id number] encounter with the patient on the same day, and personally performed and documented my assessment and findings in the medical record. He feels improved after his transfusions. He will be receiving endoscopy to be sure he is safe for his surgery. <Rani Reese M - 05/06/18 13:49> <Nitesh Fernando - Last Filed: 05/06/18 11:01> (2) Diabetes mellitus Qualifiers: Diabetes mellitus type: type 2 Diabetes mellitus fpc insulin use: without salesforce administrator use Diabetes mellitus complication status: with unspecified complications Qualified Code(s): E11.8 - Type 2 diabetes mellitus with unspecified complications <Rani Reese M - Last Filed: 05/06/18 13:49> (2) Diabetes mellitus Qualifiers: Diabetes mellitus type: type 2 Diabetes mellitus fpc insulin use: without fpc use Diabetes mellitus complication status: with unspecified complications Qualified Code(s): E11.8 - Type 2 diabetes mellitus with unspecified complications <Nitesh Fernando Last Filed: 05/06/18 11:01> (2) Diabetes mellitus Qualifiers: Diabetes mellitus type: type 2 Diabetes mellitus salesforce administrator insulin use: without fpc use Diabetes mellitus complication status: with unspecified complications Qualified Code(s): E11.8 - Type 2 diabetes mellitus with unspecified complications <Rani Reese - Last Filed: 05/06/18 13:49> (2) Diabetes mellitus Qualifiers: Diabetes mellitus type: type 2 Diabetes mellitus salesforce administrator insulin use: without salesforce administrator use Diabetes mellitus complication status: with unspecified complications Qualified Code(s): E11.8 - Type 2 diabetes mellitus with unspecified complications
--- NOTE | 2018-05-06 10:10 | P.CONGI ---
History of Present Illness Consult date: 05/06/08 Consult reason: Anemia, heme positive stools Chief complaint: Anemia, GI Bleed, Aortic Valve Stenosis History of Present Illness: This is a 72-year-old male who came into the hospital for further evaluation on 05/05/2018 with symptoms of low energy and fatigue. According to the record patient's hemoglobin was 9.3 on blood work done on 04/08/2015 and today hemoglobin 7.5. Patient received 1 unit transfusion and seems to be feeling somewhat better but is a very poor historian. Patient also notes symptoms of exertional dyspnea but is scheduled for aortic valve replacement in the near future. According to the records patient had colonoscopy on 04/18 and 2017 which showed flat polyp internal and external hemorrhoids and an anastomosis. Patient has not had any follow-up in the office yet. Patient has history of iron deficiency anemia and ulcers (per patient)and is taking iron supplements. Patient notes dark stools for at least 3 months which could be related to iron supplement but notes increased weakness and fatigue approximately 1 week ago. Patient denies any epigastric tenderness no current nausea or vomiting no dyspepsia and no dysphasia, no abdominal pain to light palpation. According to the record patient has had some recent nausea and vomiting and abdominal pain but appears to be controlled now and has been on [id number] PPI. Gastroenterology was consulted to assist with his care and to evaluate GI status before aortic valve replacement surgery. Current WBC count 4.4, INR 1, bilirubin and LFTs are normal. Review of Systems All other systems reviewed negative except as stated in HPI PMF - History History Provided By: Patient - Medical History Medical History: Medical History (Last Reviewed 05/05/18 @ 21:04 by Jessica Garcia) Anemia Aortic stenosis CVA (cerebral vascular accident) Colon cancer Diabetes HLD (hyperlipidemia) HTN (hypertension) Mitral regurgitation SOB (shortness of breath) Sinus infection - Tobacco History Second Hand Smoke Exposure: No Smoking Status: Never smoker - Alcohol History How Often Do You Have a Drink Containing Alcohol: Monthly or less - Substance Use History Substance History: No History of Abuse - Travel History Recent Travel in the [place] Within the Last 8 Weeks: No Recent Travel Out of the Country Within the Last 8 Weeks: No - Immunization History Tetanus Immunization: Unsure Medications and Allergies Active Medications: Active Medications Acetaminophen (Tylenol) 650 mg PO Q4H PRN PRN Reason: Temp > 100.4 Atorvastatin Calcium (Lipitor) 40 mg PO DAILY [facility] Last Admin: 05/06/18 09:31 Dose: 40 mg Dextrose (D50w Vial) 50 ml IV.PUSH UNSCH PRN PRN Reason: PER HYPOGLYCEMIA PROTOCOL Glucagon (Glucagon Inj) 1 mg OTHER PRN PRN PRN Reason: for Hypoglycemia Protocol Sodium Chloride (Ns Inj) 1,000 mls @ 120 mls/hr IV.CONT .Q8H20M [facility] Last Admin: 05/06/18 08:20 Dose: 120 mls/hr Pantoprazole Sodium 80 mg/ (Sodium Chloride) 100 mls @ 10 mls/hr IV.CONT Q10H [facility] Last Admin: 05/06/18 08:17 Dose: 10 mls/hr Insulin Aspart (Novolog Insulin Correctional Sugar Inj) 0 unit SQ ACHS [facility]; Protocol Last Admin: 05/06/18 09:16 Dose: Not Given Lisinopril (Prinivil) 2.5 mg PO BID [facility] Last Admin: 05/06/18 09:31 Dose: 2.5 mg Ondansetron HCl (Zofran Inj) 4 mg IV.PUSH Q6H PRN PRN Reason: NAUSEA OR VOMITING Sodium Chloride (Ns Flush) 2 ml IV.FLUSH PRN PRN PRN Reason: FLUSH AFTER USING IV ACCESS Sodium Chloride (Ns Flush) 2 ml IV.FLUSH BID [facility] Allergies Allergy/AdvReac Type Severity Reaction Status Date / Time No Known Allergies Allergy Verified 05/05/18 19:34 Home Medications Medication Instructions Recorded Confirmed Type atorvastatin 40 mg PO DAILY 03/24/18 05/05/18 History glipizide 10 mg PO DAILY 03/24/18 05/05/18 History lisinopril 2.5 mg PO BID 03/24/18 05/05/18 History Exam Vital signs: Vital Signs 05/05/18 19:23 05/05/18 19:57 05/05/18 20:33 Temperature 98.0 F Pulse Rate 71 69 Respiratory Rate 17 16 Blood Pressure 137/63 150/70 H Pulse Oximetry 97 100 99 05/05/18 21:05 05/06/18 00:00 05/06/18 01:35 Temperature 98.1 F 98.1 F Pulse Rate 63 60 Respiratory Rate 19 16 Blood Pressure 129/60 120/58 L Pulse Oximetry 100 98 98 05/06/18 01:55 05/06/18 03:31 05/06/18 04:48 Temperature 98.3 F 97.9 F 98.3 F Pulse Rate 60 65 60 Respiratory Rate 16 19 16 Blood Pressure 117/58 L 117/54 L 94/49 L Pulse Oximetry 98 99 98 05/06/18 05:09 05/06/18 08:00 Temperature 98.0 F 97.8 F Pulse Rate 60 60 Respiratory Rate 16 18 Blood Pressure 106/53 L 132/57 L Pulse Oximetry 97 98 Intake & Output 05/05/18 05/06/18 05/06/18 18:59 06:59 18:59 Intake Total 500 / 500 1000 / 1000 Balance 500 / 500 1000 / 1000 Weight 82 kg Intake: IV 100 / 100 1000 / 1000 Protonix Inj 80 MG In NS Inj 100 / 100 100 ML @ 10 mls/hr IV.CONT CONT [facility] Rx#:[id number] NS Inj 1,000 ML @ 120 mls/hr IV 1000 / 1000 .CONT .Q8H20M [facility] Rx#:[id number] Intake (Blood Product) Amt 400 / 400 Rbc As-3 Leukoreduced Unit 400 / 400 [id number] Rbc As-3 Leukoreduced Unit 0 / 0 [id number] Other: Weight On Admission 160 kg - Constitutional mild distress, cooperative - Routine HEENT Exam Head: Present: normocephalic ENT: Present: mucous membranes moist (Pale) - Routine Respiratory Exam Present: diminished air movement (Right base otherwise no obvious wheezing or rhonchi) - Routine Cardiovascular Exam Present: S1, S2, murmur ([place]) - Routine Abdominal Exam Present: soft (No obvious distention bowel sounds soft x4 quads, no abdominal pain to light palpation) - Routine Skin Exam Present: pallor Results - Labs CBC & Chem 7: 05/05/18 20:40 05/05/18 20:40 Labs: Laboratory Results - last 24 hr 05/05/18 05/05/18 05/05/18 20:40 20:40 20:40 WBC 4.4 RBC 3.07 L Hgb 7.5 L Hct 23.7 L MCV 77.2 L MCH 24.4 L MCHC 31.6 L RDW 20.4 H Plt Count 351 MPV 8.1 Neut % (Auto) 53.4 Lymph % (Auto) 34.0 [place] % (Auto) 10.9 H Eos % (Auto) 0.9 Baso % (Auto) 0.8 Neut # (Auto) 2.4 Lymph # (Auto) 1.5 [place] # (Auto) 0.5 Eos # (Auto) 0.0 Baso # (Auto) 0.0 WBC Differential . Differential Comment Auto diff final PT 10.3 INR 1.0 APTT 25.0 Sodium 142 Potassium 4.1 Chloride 108 H Carbon Dioxide 25.6 Anion Gap 8 BUN 20 H Creatinine 1.12 Estimated GFR 65 L POC Glucose Random Glucose 109 H Calcium 8.9 Total Bilirubin 0.4 AST 28 ALT 35 Alkaline Phosphatase 57 Troponin I Less than 0.02 L Total Protein 7.0 Albumin 3.9 Blood Type Antibody Screen MTS Gel Crossmatch Bld Prod Order Comment 05/05/18 05/06/18 20:40 08:22 WBC RBC Hgb Hct MCV MCH MCHC RDW Plt Count MPV Neut % (Auto) Lymph % (Auto) [place] % (Auto) Eos % (Auto) Baso % (Auto) Neut # (Auto) Lymph # (Auto) [place] # (Auto) Eos # (Auto) Baso # (Auto) WBC Differential Differential Comment PT INR APTT Sodium Potassium Chloride Carbon Dioxide Anion Gap BUN Creatinine Estimated GFR POC Glucose 96 Random Glucose Calcium Total Bilirubin AST ALT Alkaline Phosphatase Troponin I Total Protein Albumin Blood Type A Positive Antibody Screen Negative MTS Gel Crossmatch See Detail Bld Prod Order Comment Assessment and Plan - Plan 72-year-old male who came into the hospital for further evaluation on 2017 with symptoms of low energy and fatigue. According to the record patient' s hemoglobin was 9.3 on blood work done on 04/08/2015 and today hemoglobin 7.5. Patient received 1 unit transfusion and seems to be feeling somewhat better but is a very poor historian. Patient also notes symptoms of exertional dyspnea but is scheduled for aortic valve replacement in the near future. According to the records patient had colonoscopy on 04/18 and 04/19/2018 which showed flat polyp internal and external hemorrhoids and an anastomosis. Patient has not had any follow-up in the office yet. Patient has history of iron deficiency anemia and ulcers (per patient)and is taking iron supplements. Patient notes dark stools for at least 3 months which could be related to iron supplement but notes increased weakness and fatigue approximately 1 week ago. Patient denies any epigastric tenderness no current nausea or vomiting no dyspepsia and no dysphasia, no abdominal pain to light palpation. According to the record patient has had some recent nausea and vomiting and abdominal pain but appears to be controlled now and has been on [id number] PPI. Gastroenterology was consulted to assist with his care and to evaluate GI status before aortic valve replacement surgery. Current WBC count 4.4, INR 1, bilirubin and LFTs are normal. Dark sticky stools probable melena, Hemoccult positive, also takes vitamins and iron supplements. Poor historian as far as timing to his symptoms. No remembrance of EGD in the past, recent colonoscopy 1012 1013 which showed flat polyp and internal/external hemorrhoids. Fatigue weakness, symptoms appear to be related to symptomatic anemia patient was transfused with 1 unit and repeat hemoglobin pending Exertional shortness of breath which could be related to fatigue, iron deficiency anemia and also aortic valve disease. Planning aortic valve replacement soon but needs GI workup for any obvious GI bleeding before any surgery can be done Patient states history of gastric ulcers, iron deficiency anemia Plan Diet, ate small amount of yogurt, Ensure supplement and apple juice this a.m. now n.p.o. Consent for EGD this p.m., around 230 or later Bowel regimen PPI Zofran as needed Monitor labs with special attention hemoglobin and transfuse as needed Further recommendations to follow Patient was seen per myself and Dr. Mendoza, note was written on his behalf
[2018-05-06 13:32] LABS: Baso % (Auto) 0.8 % (0.0-2.0); Eos % (Auto) 0.6 % (0.0-4.0); Hematocrit 27.4 % (39.0-51.0); Hemoglobin 8.9 gm/dL (13.0-17.0); Lymph # (Auto) 1.2 th/mm3 (1.0-4.8); Lymph % (Auto) 23.6 % (9.0-44.0); Mean Corpuscular HGB Conc 32.3 % (32.0-36.0); Mean Corpuscular Hemoglobin 25.8 pg (27.0-34.0); Mean Corpuscular Volume 79.9 fL (80.0-100.0); Mean Platelet Volume 7.7 fL (7.0-11.0); Mono # (Auto) 0.6 th/mm3 (0.0-0.9); Neut # (Auto) 3.2 th/mm3 (1.8-7.7); Platelet Count 283 th/mm3 (150-450); Red Blood Count 3.43 mil/mm3 (4.50-5.90); Red Cell Distribution Width 20.1 % (11.6-17.2); White Blood Count 5.1 th/mm3 (4.0-11.0)
[2018-05-06 13:50] LABS: Anion Gap 5 meq/L (5-15); Blood Urea Nitrogen 14 mg/dL (7-18); Calcium 8.4 mg/dL (8.5-10.1); Carbon Dioxide 29.4 meq/L (21.0-32.0); Chloride 107 meq/L (98-107); Glomerular Filtration Rate Greater Than 89 mL/min (>89); Glucose,Random 93 mg/dL (74-106); Potassium 4.4 meq/L (3.5-5.1); Sodium 141 meq/L (136-145)
--- NOTE | 2018-05-06 15:18 | ECG ---
Date Performed: 05/05/2018 Time Performed: 20:03:00 PTAGE: 72 years EKG: Sinus rhythm MARKED LEFT AXIS DEVIATION RIGHT BUNDLE BRANCH BLOCK Since the previous tracing, no significant wilkerson ge noted ABNORMAL ECG PREVIOUS TRACING : 03/24/2018 11.09 DOCTOR: Esteban Vergara Interpretating Date/Time 05/06/2018 15:01:44
--- NOTE | 2018-05-06 17:19 | P.PCN ---
Date of procedure: 05/06/18 Procedure: THANK YOU FOR THE REFERRAL Indication; anemia, melena Procedure Performed; enteroscopy with ablation of AVMs After informing the patient about procedure and possible complications consent was signed. history and physical were updated. Patient was taken to the procedure room and placed in position. Time out was completed. Adequate sedation was performed by anesthesia provider. Upper Endoscopy, the scope was placed in the mouth advanced under video guide to the mid jejunum, then the scope was withdrawal to the stomach and retro- flexion was performed, the scope was withdrawal to the esophagus then out of the mouth without any immediate complication there were 2 AVMs in the duodenum ablated with heat, one AVM in the stomach ablated with gold probe Findings; Esophagus: Normal Stomach 1 AVM in the body of the stomach ablated with heat Duodenum 2 AVMs ablated with heat Duodenum no abnormality seen No sign of active bleeding Bleeding could have come from those AVMs or from AVMs downstream in the small bowel Recommendations; 1- Supportive care 2- ok to transfer to recovery area then discharge per protocol 3-monitor hemoglobin 5-[id number] diet 5- EGD and colonoscopy as needed 6-follow-up in GI office and consider capsule endoscopy if continue to have hemoglobin
[2018-05-06 19:32] VITALS: BP 124/60; PULSE 67; RESP 20; TEMP 98.2; O2SAT 99
== END 2018-05-06 20:56 | disposition home or self-care (01) ==
LOC: NEPE 18:33 → NEDA 22:23 → NEPFCDU 23:31
PROVIDERS: ADMIT Family Medicine; ATTEND Family Medicine
PROC: PANENDO (2018-05-06 16:00)